=== PATIENT | male | born 1985 | race Caucasian/White ===

== ENCOUNTER 2020-04-15 05:40 | Inpatient (IN) | payer MEDICAID, OTHER ==
[~2020-04-15] VITALS: Ht 165.1 cm; Wt 89.2 kg
--- NOTE | 2020-04-15 05:50 | NUR ---
PT BIB [facility] FROM [facility] FOR AN ABSCESS IN THE MOUTH, HYPOTENSION AND COVID+ WITH LABORED RESPIRATIONS. PT HAS BEEN RECIEVING ANTIBIOTICS AT THE [facility] FOR ABSCESS IN MOUTH. 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 PT ATTACHED TO ALL MONITORS AND [address] LAW ENFORCEMENT AT BEDSIDE D/T PT IN CUSTODY.
[2020-04-15] MEDS ORDERED: CEFTRIAXONE PMX 1GM/50ML 50 ML IVPB ONE (06:00)
[2020-04-15] MEDS ORDERED: AZITHROMYCIN 500 MG in SODIUM CHLORIDE 0.9% 250 ML IVPB ONE (06:00)
[2020-04-15] MEDS ORDERED: ACETAMINOPHEN 500 MG TABLET PO ONE (06:00)
[2020-04-15] MEDS ORDERED: SODIUM CHLORIDE 0.9% 1,000ML IVBOLUS ONE (06:00)
[2020-04-15] MEDS ORDERED: DEXAMETHASONE 4 MG/ML, 1ML IV ONE (06:00)
[2020-04-15] MEDS ORDERED: CEFTRIAXONE PMX 1GM/50ML 50 ML ONE (06:07)
[2020-04-15] MEDS ORDERED: DEXAMETHASONE 4 MG/ML, 5ML ONE (06:13)
--- NOTE | 2020-04-15 06:17 | NUR ---
abx started after blood cultures x 2 drawn
[2020-04-15 06:19] LABS: MEAN CORPUSCULAR HEMOGLOBIN 30.4 pg (27.5-34.5); MEAN CORPUSCULAR HGB CONC 34.5 g/dL (33.2-36.2); MEAN PLATELET VOLUME 11.6 fL (7.4-10.4); PLATELET COUNT 116 x10^3/uL (130-400); RED BLOOD COUNT 4.68 x10^6/uL (4.38-5.82); RED CELL DISTRIBUTION WIDTH 13.3 % (9.4-14.8)
[2020-04-15 06:39] LABS: D-DIMER (DIC) 7.73 ug/mlFEU (0.00-0.52); PROTIME 13.6 Seconds (9.6-11.5)
[2020-04-15 06:40] LABS: ALANINE AMINOTRANSFERASE 51 U/L (12-78); ALBUMIN 2.5 g/dL (3.4-5.0); ANION GAP 14 mmol/L (5-15); CALCIUM 8.1 mg/dL (8.5-10.1); CHLORIDE 103 mmol/L (98-107)
[2020-04-15 06:45] LABS: ALKALINE PHOSPHATASE 169 U/L (45-117); BILIRUBIN,TOTAL 1.4 mg/dL (0.2-1.0); CREATININE 2.39 mg/dL (0.7-1.3); TOTAL PROTEIN 6.4 g/dL (6.4-8.2); TROPONIN I 0.513 ng/mL (0.000-0.045)
[2020-04-15 06:47] LABS: MD YES
[2020-04-15 06:50] LABS: C-REACTIVE PROTEIN, QUANT > 19.00 mg/dL (0.02-0.49)
[2020-04-15 06:51] LABS: BAND#(MANUAL) 1.04 x10^3/uL; BANDS%(MANUAL) 16 % (0-7); LYMPH#(MANUAL) 0.46 x10^3/uL (1-3.4); LYMPHS% (MANUAL) 7 % (22-44); METAMYELOCYTES# (MANUAL) 0.07 x10^3/uL (0-0); METAMYELOCYTES% (MANUAL) 1 % (0-1); MONOS#(MANUAL) 0.07 x10^3/uL (0.3-2.7); MONOS% (MANUAL) 1 % (2-9)
[2020-04-15 06:52] LABS: <PLATELET ESTIMATE> ADEQUATE; <PLT MORPHOLOGY> NORMAL PLT MORPH; <RBC MORPHOLOGY> NORMAL; SEG#(MANUAL) 4.88 x10^3/uL (1.8-6.8); SEGS% (MANUAL) 75 % (42-75)
--- NOTE | 2020-04-15 06:59 | NUR ---
Report from Valery GARCIA. Pt resting in bed, tachypnic- from report this is unchanged from arriving condition. Pt positioned for comfort in bed, denies pain or other needs at this time. POC discussed with pt and deputy who is at bedside. Continuous heart, oxygen and BP Monitors are in place, all safety measures observed. IVF and IV abx are infusing well.
[2020-04-15] MEDS ORDERED: HEPARIN 5,000 UNITS/ML, 1ML IV ONE (07:30)
[2020-04-15] MEDS ORDERED: SODIUM CHLORIDE FLUSH 10ML SYR IVF PRN (07:30)
--- NOTE | 2020-04-15 07:46 | NUR ---
Report from Gabriella GARCIA. Pending heparin drip from pharmacy. Azithromycin IV andreia. Pt on monitor. Officer at bedside.
[2020-04-15] MEDS ORDERED: HEPARIN 5,000 UNITS/ML, 1ML ONE (07:58)
[2020-04-15] MEDS ORDERED: HEPARIN 25,000 UNITS/250ML PMX 250 ML ONE (08:04)
[2020-04-15] MEDS: HEPARIN 25,000 UNITS/250ML PMX 250 ML IV PRN (08:28)
--- NOTE | 2020-04-15 08:31 | NUR ---
heparin started. antibiotics running. plan of care discussed.
--- NOTE | 2020-04-15 08:41 | NUR ---
Report to Yoel GARCIA. Pt to be transported upstairs via tech and RN.
[2020-04-15] MEDS ORDERED: DOCUSATE 100 MG CAPSULE PO PRN (09:00)
[2020-04-15] MEDS ORDERED: GLUCAGON 1 MG IM PRN (09:00)
[2020-04-15] MEDS ORDERED: PHARMACY MAY ADJ FOR RENAL FX MC SCH ×2 (09:00→15:30)
[2020-04-15] MEDS ORDERED: DEXTROSE 50%, 50ML SYRINGE IVPush PRN (09:00)
[2020-04-15] MEDS ORDERED: VANCOMYCIN PER PHARMACY MC SCH (09:00)
[2020-04-15] MEDS ORDERED: DEXTROSE 4 GM TAB.CHEW PO PRN (09:00)
[2020-04-15] MEDS ORDERED: ONDANSETRON 2MG/ML, 2ML IV PRN (09:00)
[2020-04-15] MEDS ORDERED: PIPERACILLIN/TAZO/PMX 4.5GM 100 ML IVPB SCH (09:00)
[2020-04-15] MEDS ORDERED: SODIUM CHLORIDE 0.9% 1,000 ML IV SCH (09:00)
--- NOTE | 2020-04-15 09:01 | NUR ---
pt away to ct then transported to floor
[2020-04-15] MEDS ORDERED: ALBUTEROL/IPRATROPIUM 2.5MG/0.5MG, 3 ML HHN SCH (09:30)
[2020-04-15 10:23] LABS: TROPONIN I 0.522 ng/mL (0.000-0.045)
[2020-04-15 10:27] LABS: D-DIMER 4.33 ug/mlFEU (0.00-0.52)
[2020-04-15 10:30] VITALS: BP_SYST 96; BP_DIAS 67; BP_DIAS 68
[2020-04-15 10:34] LABS: FIBRINOGEN > 860 mg/dL (200-340)
[2020-04-15] MEDS: INSULIN REGULAR 100 UNITS/ML, 3ML VIAL SQ-INSULIN SCH ×3 (11:00→20:03)
[2020-04-15] MEDS: SODIUM CHLORIDE 0.9% 1,000 ML IV SCH ×2 (11:00→18:28)
[2020-04-15] MEDS ORDERED: PHARMACOKINETIC MONITORING MC PRN (11:00)
[2020-04-15] MEDS ORDERED: VANCOMYCIN 2,300 MG in SODIUM CHLORIDE 0.9% 500 ML IV ONE (11:00)
[2020-04-15] MEDS ORDERED: FLUTICASONE/VILANTEROL 100-25MCG/INH INH SCH (11:00)
[2020-04-15] MEDS: SODIUM CHLORIDE FLUSH 10ML SYR IVF SCH ×2 (11:26→19:59)
[2020-04-15] MEDS: PIPERACILLIN/TAZO/PMX 3.375GM 50 ML IV SCH ×2 (11:26→19:58)
[2020-04-15 11:49] LABS: FIO2 ROOM AIR %
[2020-04-15] MEDS ORDERED: POTASSIUM CHLORIDE 40 MEQ in SODIUM CHLORIDE 0.9% 100 ML IV ONE (12:00)
[2020-04-15] MEDS ORDERED: POTASSIUM CHLORIDE 40 MEQ in SODIUM CHLORIDE 0.9% 500 ML IV ONE (12:30)
[2020-04-15] MEDS ORDERED: RACEPINEPHRINE INH 2.25%, 0.5ML NPPB PRN (12:30)
[2020-04-15] MEDS: LACTATED RINGERS 1,000 ML IV SCH ×2 (13:00→18:27)
[2020-04-15 14:37] VITALS: BP 106/69
[2020-04-15 14:46] LABS: TROPONIN I 0.318 ng/mL (0.000-0.045)
[2020-04-15] MEDS ORDERED: FENTANYL PF 100 MCG/2ML ONE ×7 (14:49→17:11)
[2020-04-15] MEDS ORDERED: EPINEPHRINE 1 MG/ML, 1ML ONE (15:20)
[2020-04-15] MEDS ORDERED: BACITRACIN 50,000 UNIT ONE (15:20)
[2020-04-15] MEDS ORDERED: LIDOCAINE 1%, 20ML ONE (15:20)
[2020-04-15] MEDS ORDERED: EPHEDRINE 50 MG/ML, 1ML IVPush PRN (15:30)
[2020-04-15] MEDS ORDERED: ACETAMINOPHEN 325 MG TABLET PO PRN (15:30)
[2020-04-15] MEDS ORDERED: OXYcodone 5 MG/5 ML ORAL.SOL UDC PO PRN (15:30)
[2020-04-15] MEDS ORDERED: HYDROmorphone 1 MG/ML, 1ML INJ IVPush PRN (15:30)
[2020-04-15] MEDS ORDERED: hydrALAzine 20 MG/ML, 1ML IV PRN (15:30)
[2020-04-15] MEDS ORDERED: ONDANSETRON 2MG/ML, 2ML IVPush PRN (15:30)
[2020-04-15] MEDS ORDERED: PROMETHAZINE 25 MG/ML, 1ML IVPush PRN (15:30)
[2020-04-15] MEDS ORDERED: LIDOCAINE-MPF 1%, 2ML ENDO PRN (15:30)
[2020-04-15] MEDS ORDERED: PROPOFOL 100 ML IV PRN (15:30)
[2020-04-15] MEDS ORDERED: LABETALOL 5MG/ML, 20ML IV PRN (15:30)
[2020-04-15] MEDS ORDERED: FENTANYL PF 100 MCG/2ML IV PRN (15:30)
[2020-04-15] MEDS ORDERED: OXYcodone 5 MG/5 ML ORAL.SOL UDC ONE (15:40)
[2020-04-15] MEDS ORDERED: LIDOCAINE-MPF 2% ,5ML ONE (15:45)
[2020-04-15] MEDS ORDERED: SUGAMMADEX 200 MG/2 ML IVPush ONE (16:01)
[2020-04-15] MEDS ORDERED: PROPOFOL 10 MG/ML, 20ML ONE (16:01)
[2020-04-15] MEDS ORDERED: SUCCINYLCHOLINE 20 MG/ML, 10ML ONE (16:01)
[2020-04-15] MEDS ORDERED: DEXAMETHASONE 4 MG/ML, 1ML ONE (16:01)
[2020-04-15] MEDS ORDERED: ROCURONIUM 10MG/ML,5ML ONE (16:01)
[2020-04-15] MEDS ORDERED: ONDANSETRON 2MG/ML, 2ML ONE (16:01)
[2020-04-15] MEDS ORDERED: MIDAZOLAM 1 MG/ML, 2ML ONE (16:11)
[2020-04-15] MEDS ORDERED: LIDOCAINE 1%-EPI 1:100K, 20ML INFIL ONE (16:22)
[2020-04-15 16:23] LABS: CHLORIDE,URINE RANDOM 102 mmol/L; POTASSIUM,URINE RANDOM 25 mmol/L; SODIUM,URINE RANDOM 73 mmol/L
[2020-04-15] MEDS ORDERED: BACITRACIN 50,000 UNIT IM ONE (16:23)
[2020-04-15 16:50] LABS: MICROSCOPIC INDICATED
[2020-04-15 16:57] LABS: ALBUMIN 2.3 g/dL (3.4-5.0); ANION GAP 13 mmol/L (5-15); CALCIUM 8.1 mg/dL (8.5-10.1); CHLORIDE 108 mmol/L (98-107); CREATININE 1.65 mg/dL (0.7-1.3)
[2020-04-15 16:59] LABS: CREATINE KINASE, TOTAL 538 U/L (39-308)
[2020-04-15] MEDS ORDERED: PROPOFOL 50 ML ONE (17:30)
[2020-04-15] MEDS: PROPOFOL 100 ML IV PRN ×2 (18:16→23:40)
[2020-04-15] MEDS: DEXAMETHASONE 4 MG/ML, 1ML IVPush SCH (18:17)
[2020-04-15 21:08] LABS: TROPONIN I 0.178 ng/mL (0.000-0.045)
[2020-04-16] MEDS: FENTANYL PF 100 MCG/2ML IVPush PRN ×3 (00:15→17:15)
[2020-04-16] MEDS: HEPARIN 25,000 UNITS/250ML PMX 250 ML IV PRN (00:33)
[2020-04-16] MEDS: SODIUM CHLORIDE 0.9% 1,000 ML IV SCH (02:03)
[2020-04-16] MEDS: LACTATED RINGERS 1,000 ML IV SCH ×3 (02:21→13:13)
[2020-04-16] MEDS: DEXAMETHASONE 4 MG/ML, 1ML IVPush SCH ×3 (02:21→20:27)
[2020-04-16] MEDS: PIPERACILLIN/TAZO/PMX 3.375GM 50 ML IV SCH ×4 (02:21→20:27)
[2020-04-16] MEDS: PROPOFOL 100 ML IV PRN ×5 (04:16→22:01)
[2020-04-16 06:45] LABS: MEAN CORPUSCULAR HEMOGLOBIN 30.1 pg (27.5-34.5); MEAN CORPUSCULAR HGB CONC 34.1 g/dL (33.2-36.2); MEAN PLATELET VOLUME 11.6 fL (7.4-10.4); PLATELET COUNT 109 x10^3/uL (130-400); RED BLOOD COUNT 4.22 x10^6/uL (4.38-5.82); RED CELL DISTRIBUTION WIDTH 13.8 % (9.4-14.8)
[2020-04-16 06:48] LABS: ALBUMIN 1.9 g/dL (3.4-5.0); ANION GAP 9 mmol/L (5-15); CALCIUM 7.6 mg/dL (8.5-10.1); CHLORIDE 111 mmol/L (98-107)
[2020-04-16 06:57] LABS: ALANINE AMINOTRANSFERASE 47 U/L (12-78); ALKALINE PHOSPHATASE 66 U/L (45-117); BILIRUBIN,TOTAL 1.1 mg/dL (0.2-1.0); CREATININE 1.09 mg/dL (0.7-1.3); HCT (SEDRATE) 37.2 % (39.2-51.8); TOTAL PROTEIN 5.8 g/dL (6.4-8.2); VANCOMYCIN,RANDOM 5.9 mcg/mL
[2020-04-16 07:01] LABS: C-REACTIVE PROTEIN, QUANT > 19.00 mg/dL (0.02-0.49)
[2020-04-16 07:15] LABS: MD YES
[2020-04-16 07:17] LABS: <PLATELET ESTIMATE> DECREASED; <RBC MORPHOLOGY> NORMAL; BAND#(MANUAL) 4.24 x10^3/uL; BANDS%(MANUAL) 27 % (0-7); LYMPH#(MANUAL) 2.04 x10^3/uL (1-3.4); LYMPHS% (MANUAL) 13 % (22-44); METAMYELOCYTES# (MANUAL) 0.31 x10^3/uL (0-0); METAMYELOCYTES% (MANUAL) 2 % (0-1); MONOS#(MANUAL) 1.26 x10^3/uL (0.3-2.7); MONOS% (MANUAL) 8 % (2-9); PMNS WITH VACUOLES 1+; SEG#(MANUAL) 7.85 x10^3/uL (1.8-6.8); SEGS% (MANUAL) 50 % (42-75); TOXIC GRAN 1+
[2020-04-16 07:18] LABS: LARGE PLATELETS 1+
[2020-04-16] MEDS ORDERED: VANCOMYCIN 1,800 MG in SODIUM CHLORIDE 0.9% 250 ML IV SCH (07:30)
[2020-04-16] MEDS: SODIUM CHLORIDE FLUSH 10ML SYR IVF SCH ×2 (08:36→20:27)
[2020-04-16] MEDS: INSULIN REGULAR 100 UNITS/ML, 3ML VIAL SQ-INSULIN SCH ×3 (08:37→20:38)
[2020-04-16] MEDS ORDERED: DEXAMETHASONE 4 MG/ML, 1ML IVPush SCH (09:00)
[2020-04-16] MEDS ORDERED: SODIUM CHLORIDE 0.9% 1,000 ML IV SCH (11:00)
[2020-04-16] MEDS: ENOXAPARIN 40 MG/0.4 ML SQ SCH (11:33)
[2020-04-16] MEDS: FAMOTIDINE 20 MG/2 ML IVPush SCH ×2 (11:33→20:27)
[2020-04-16] MEDS ORDERED: LIDOCAINE 1%, 20ML ONE (16:48)
[2020-04-16] MEDS ORDERED: EPINEPHRINE 1 MG/ML, 1ML ONE (16:48)
[2020-04-16] MEDS: ACETAMINOPHEN 325 MG TABLET PO PRN (20:28)
[2020-04-17] MEDS: PROPOFOL 100 ML IV PRN ×4 (01:34→17:38)
[2020-04-17] MEDS: PIPERACILLIN/TAZO/PMX 3.375GM 50 ML IV SCH ×4 (01:59→19:42)
[2020-04-17] MEDS: INSULIN REGULAR 100 UNITS/ML, 3ML VIAL SQ-INSULIN SCH ×2 (04:27→08:00)
[2020-04-17 05:15] LABS: CHLORIDE 113 mmol/L (98-107)
[2020-04-17 05:22] LABS: ALANINE AMINOTRANSFERASE 37 U/L (12-78); ALBUMIN 1.7 g/dL (3.4-5.0); ALKALINE PHOSPHATASE 61 U/L (45-117); ANION GAP 5 mmol/L (5-15); BILIRUBIN,TOTAL 0.7 mg/dL (0.2-1.0); CALCIUM 8.1 mg/dL (8.5-10.1); CREATININE 0.77 mg/dL (0.7-1.3); TOTAL PROTEIN 5.8 g/dL (6.4-8.2)
[2020-04-17 05:32] LABS: MEAN CORPUSCULAR HEMOGLOBIN 29.9 pg (27.5-34.5); MEAN PLATELET VOLUME 11.7 fL (7.4-10.4); PLATELET COUNT 125 x10^3/uL (130-400); RED BLOOD COUNT 3.94 x10^6/uL (4.38-5.82); RED CELL DISTRIBUTION WIDTH 13.6 % (9.4-14.8)
[2020-04-17 06:08] LABS: BANDS%(MANUAL) 29 % (0-7); LYMPH#(MANUAL) 0.16 x10^3/uL (1-3.4); LYMPHS% (MANUAL) 1 % (22-44); MD YES; MONOS#(MANUAL) 0.47 x10^3/uL (0.3-2.7); MONOS% (MANUAL) 3 % (2-9); SEG#(MANUAL) 10.39 x10^3/uL (1.8-6.8); SEGS% (MANUAL) 67 % (42-75)
[2020-04-17 06:10] LABS: <RBC MORPHOLOGY> NORMAL
[2020-04-17 06:11] LABS: <PLATELET ESTIMATE> ADEQUATE
[2020-04-17 06:12] LABS: LARGE PLATELETS 1+
[2020-04-17] MEDS: FAMOTIDINE 20 MG/2 ML IVPush SCH ×2 (07:59→19:42)
[2020-04-17] MEDS: SODIUM CHLORIDE FLUSH 10ML SYR IVF SCH ×2 (07:59→19:43)
[2020-04-17] MEDS: DEXAMETHASONE 4 MG/ML, 1ML IVPush SCH ×2 (07:59→19:42)
[2020-04-17] MEDS: LACTATED RINGERS 1,000 ML IV SCH (08:00)
[2020-04-17] MEDS: ENOXAPARIN 40 MG/0.4 ML SQ SCH (09:28)
[2020-04-17] MEDS ORDERED: REMDESIVIR 200 MG in SODIUM CHLORIDE 0.9% 250 ML IVPB ONE (15:30)
[2020-04-17] MEDS: FENTANYL PF 100 MCG/2ML IVPush PRN (15:49)
[2020-04-18] MEDS: PIPERACILLIN/TAZO/PMX 3.375GM 50 ML IV SCH (02:13)
[2020-04-18] MEDS: PROPOFOL 100 ML IV PRN (03:23)
[2020-04-18] MEDS: FENTANYL PF 100 MCG/2ML IVPush PRN ×2 (04:05→10:33)
[2020-04-18 04:41] LABS: HCT (SEDRATE) 36.9 % (39.2-51.8); MEAN CORPUSCULAR HEMOGLOBIN 29.8 pg (27.5-34.5); MEAN CORPUSCULAR HGB CONC 33.7 g/dL (33.2-36.2); MEAN PLATELET VOLUME 11.5 fL (7.4-10.4); PLATELET COUNT 178 x10^3/uL (130-400); RED BLOOD COUNT 4.18 x10^6/uL (4.38-5.82)
[2020-04-18 05:00] LABS: ALANINE AMINOTRANSFERASE 36 U/L (12-78); ALBUMIN 1.7 g/dL (3.4-5.0); ALKALINE PHOSPHATASE 82 U/L (45-117); BILIRUBIN,TOTAL 0.6 mg/dL (0.2-1.0); CALCIUM 8.1 mg/dL (8.5-10.1); CREATININE 0.78 mg/dL (0.7-1.3); TOTAL PROTEIN 5.9 g/dL (6.4-8.2); TRIGLYCERIDES 445 mg/dL (50-200)
[2020-04-18 05:06] LABS: ANION GAP 4 mmol/L (5-15); CHLORIDE 113 mmol/L (98-107)
[2020-04-18 06:01] LABS: MD YES
[2020-04-18 06:03] LABS: BAND#(MANUAL) 1.29 x10^3/uL; BANDS%(MANUAL) 7 % (0-7); LYMPH#(MANUAL) 0.92 x10^3/uL (1-3.4); LYMPHS% (MANUAL) 5 % (22-44); MONOS#(MANUAL) 1.29 x10^3/uL (0.3-2.7); MONOS% (MANUAL) 7 % (2-9); SEGS% (MANUAL) 81 % (42-75)
[2020-04-18 06:05] LABS: <PLATELET ESTIMATE> ADEQUATE; LARGE PLATELETS 1+; PMNS WITH VACUOLES 1+; POLYCHROMASIA 1+; TOXIC GRAN 1+
[2020-04-18] MEDS ORDERED: MIDAZOLAM HCL 50 MG in SODIUM CHLORIDE 0.9% 40 ML IV PRN (07:00)
[2020-04-18] MEDS: FAMOTIDINE 20 MG/2 ML IVPush SCH ×2 (09:28→20:10)
[2020-04-18] MEDS: DEXAMETHASONE 4 MG/ML, 1ML IVPush SCH ×2 (09:28→20:10)
[2020-04-18] MEDS: AMPICILLIN/SULBACTAM 3 GM in SODIUM CHLORIDE 0.9% 100 ML IV SCH ×3 (09:28→18:09)
[2020-04-18] MEDS: SODIUM CHLORIDE FLUSH 10ML SYR IVF SCH ×2 (09:29→20:11)
[2020-04-18] MEDS: DEXMEDETOMIDINE 400 MCG in SODIUM CHLORIDE 0.9% 96 ML IV PRN ×2 (09:34→18:24)
[2020-04-18] MEDS ORDERED: LIDOCAINE 1%, 10ML ONE (09:58)
[2020-04-18] MEDS: ENOXAPARIN 40 MG/0.4 ML SQ SCH (10:00)
[2020-04-18] MEDS ORDERED: REMDESIVIR 100 MG in SODIUM CHLORIDE 0.9% 250 ML IVPB SCH (15:30)
[2020-04-19] MEDS: AMPICILLIN/SULBACTAM 3 GM in SODIUM CHLORIDE 0.9% 100 ML IV SCH ×2 (00:10→05:32)
[2020-04-19] MEDS: DEXMEDETOMIDINE 400 MCG in SODIUM CHLORIDE 0.9% 96 ML IV PRN ×3 (02:25→18:21)
[2020-04-19 04:20] LABS: HCT (SEDRATE) 38.4 % (39.2-51.8)
[2020-04-19 04:22] LABS: BASOPHILS % (AUTO) 0 % (0-1); EOSINOPHILS % (AUTO) 0 % (1-7); LYMPHOCYTES % (AUTO) 4 % (22-44); MEAN CORPUSCULAR HEMOGLOBIN 29.6 pg (27.5-34.5); MEAN CORPUSCULAR HGB CONC 33.2 g/dL (33.2-36.2); MEAN PLATELET VOLUME 11.7 fL (7.4-10.4); MONOCYTES % (AUTO) 5 % (2-9); NEUTROPHILS % (AUTO) 91 % (42-75); PLATELET COUNT 222 x10^3/uL (130-400); RED BLOOD COUNT 4.35 x10^6/uL (4.38-5.82); RED CELL DISTRIBUTION WIDTH 14.3 % (9.4-14.8)
[2020-04-19 04:37] LABS: ALANINE AMINOTRANSFERASE 40 U/L (12-78); ALBUMIN 1.6 g/dL (3.4-5.0); CHLORIDE 118 mmol/L (98-107); CREATININE 0.78 mg/dL (0.7-1.3)
[2020-04-19 04:39] LABS: ALKALINE PHOSPHATASE 86 U/L (45-117); BILIRUBIN,TOTAL 0.5 mg/dL (0.2-1.0)
[2020-04-19] MEDS: HYDROcodone/APAP 5/325 TABLET PO PRN (04:46)
[2020-04-19 04:52] LABS: ANION GAP 1 mmol/L (5-15)
[2020-04-19] MEDS: FENTANYL PF 100 MCG/2ML IVPush PRN ×2 (04:56→05:10)
[2020-04-19 04:57] LABS: MD SCAN
[2020-04-19] MEDS: INSULIN LISPRO 100 UNITS/ML, PEN SQ-INSULIN SCH ×4 (09:12→20:28)
[2020-04-19] MEDS: INSULIN GLARGINE 100 UNITS/ML, PEN SQ-INSULIN SCH ×2 (09:13→20:28)
[2020-04-19] MEDS: FAMOTIDINE 20 MG/2 ML IVPush SCH ×2 (09:14→20:27)
[2020-04-19] MEDS: ENOXAPARIN 40 MG/0.4 ML SQ SCH (09:14)
[2020-04-19] MEDS: DEXAMETHASONE 4 MG/ML, 1ML IVPush SCH ×2 (09:14→20:26)
[2020-04-19] MEDS: SODIUM CHLORIDE FLUSH 10ML SYR IVF SCH ×2 (09:15→20:26)
[2020-04-19] MEDS: CEFTRIAXONE PMX 2GM/50ML 50 ML IVPB SCH (10:54)
[2020-04-19 11:49] LABS: CLOSTRIDIUM DIFFICILE ANTIGEN NEGATIVE; CLOSTRIDIUM DIFFICILE TOXIN NEGATIVE (Negative)
[2020-04-19] MEDS: CLINDAMYCIN PMX 900MG/50ML 50 ML IV SCH ×2 (12:53→20:26)
[2020-04-20] MEDS: HYDROcodone/APAP 5/325 TABLET PO PRN (02:22)
[2020-04-20] MEDS: DEXMEDETOMIDINE 400 MCG in SODIUM CHLORIDE 0.9% 96 ML IV PRN ×4 (02:57→21:45)
[2020-04-20] MEDS: INSULIN LISPRO 100 UNITS/ML, PEN SQ-INSULIN SCH ×4 (04:00→20:40)
[2020-04-20 04:35] LABS: BASOPHILS % (AUTO) 0 % (0-1); EOSINOPHILS % (AUTO) 0 % (1-7); LYMPHOCYTES % (AUTO) 7 % (22-44); MEAN CORPUSCULAR HEMOGLOBIN 29.8 pg (27.5-34.5); MEAN CORPUSCULAR HGB CONC 33.2 g/dL (33.2-36.2); MEAN PLATELET VOLUME 11.5 fL (7.4-10.4); MONOCYTES % (AUTO) 6 % (2-9); NEUTROPHILS % (AUTO) 86 % (42-75); PLATELET COUNT 260 x10^3/uL (130-400); RED CELL DISTRIBUTION WIDTH 14.3 % (9.4-14.8)
[2020-04-20 04:56] LABS: ALBUMIN 1.6 g/dL (3.4-5.0); ANION GAP 2 mmol/L (5-15); CALCIUM 8.2 mg/dL (8.5-10.1); CHLORIDE 122 mmol/L (98-107)
[2020-04-20 05:01] LABS: ALANINE AMINOTRANSFERASE 64 U/L (12-78); ALKALINE PHOSPHATASE 84 U/L (45-117); BILIRUBIN,TOTAL 0.6 mg/dL (0.2-1.0); CREATININE 0.59 mg/dL (0.7-1.3); TOTAL PROTEIN 5.7 g/dL (6.4-8.2)
[2020-04-20] MEDS ORDERED: OMNIPAQUE 350 MG/ML, 75ML BOTTLE ONE (05:38)
[2020-04-20] MEDS: CLINDAMYCIN PMX 900MG/50ML 50 ML IV SCH ×3 (05:44→20:38)
[2020-04-20 05:46] LABS: MD SCAN
[2020-04-20] MEDS: DEXAMETHASONE 4 MG/ML, 1ML IVPush SCH ×2 (08:38→20:39)
[2020-04-20] MEDS: FAMOTIDINE 20 MG/2 ML IVPush SCH ×2 (08:38→20:38)
[2020-04-20] MEDS: ENOXAPARIN 40 MG/0.4 ML SQ SCH (08:39)
[2020-04-20] MEDS: INSULIN GLARGINE 100 UNITS/ML, PEN SQ-INSULIN SCH ×2 (08:41→20:39)
[2020-04-20] MEDS: SODIUM CHLORIDE FLUSH 10ML SYR IVF SCH ×2 (08:41→20:39)
[2020-04-20] MEDS ORDERED: PSYLLIUM PACKET PO SCH (09:06)
[2020-04-20] MEDS: FENTANYL PF 100 MCG/2ML IVPush PRN ×3 (09:19→21:45)
[2020-04-20] MEDS: CEFTRIAXONE PMX 2GM/50ML 50 ML IVPB SCH (09:40)
[2020-04-20] MEDS ORDERED: LOPERAMIDE 1 MG/5 ML, 10ML UDC NG SCH (12:30)
[2020-04-20] MEDS: LOPERAMIDE 1 MG/7.5 ML LIQUID NG SCH ×2 (14:24→20:38)
[2020-04-21] MEDS: FENTANYL PF 100 MCG/2ML IVPush PRN ×7 (00:08→23:33)
[2020-04-21] MEDS: LOPERAMIDE 1 MG/7.5 ML LIQUID NG SCH (03:00)
[2020-04-21] MEDS: INSULIN LISPRO 100 UNITS/ML, PEN SQ-INSULIN SCH ×4 (03:00→20:04)
[2020-04-21] MEDS: DEXMEDETOMIDINE 400 MCG in SODIUM CHLORIDE 0.9% 96 ML IV PRN ×3 (03:51→20:16)
[2020-04-21] MEDS: CLINDAMYCIN PMX 900MG/50ML 50 ML IV SCH ×3 (03:51→19:59)
[2020-04-21 04:58] LABS: BASOPHILS % (AUTO) 0 % (0-1); EOSINOPHILS % (AUTO) 0 % (1-7); LYMPHOCYTES % (AUTO) 8 % (22-44); MEAN CORPUSCULAR HEMOGLOBIN 29.5 pg (27.5-34.5); MEAN PLATELET VOLUME 11.7 fL (7.4-10.4); MONOCYTES % (AUTO) 7 % (2-9); NEUTROPHILS % (AUTO) 85 % (42-75); PLATELET COUNT 268 x10^3/uL (130-400); RED BLOOD COUNT 4.16 x10^6/uL (4.38-5.82); RED CELL DISTRIBUTION WIDTH 14.3 % (9.4-14.8)
[2020-04-21 04:59] LABS: ALANINE AMINOTRANSFERASE 53 U/L (12-78); ALBUMIN 1.6 g/dL (3.4-5.0); ANION GAP 3 mmol/L (5-15); CALCIUM 7.9 mg/dL (8.5-10.1); CHLORIDE 114 mmol/L (98-107); CREATININE 0.55 mg/dL (0.7-1.3); TRIGLYCERIDES 209 mg/dL (50-200)
[2020-04-21 05:01] LABS: ALKALINE PHOSPHATASE 79 U/L (45-117); BILIRUBIN,TOTAL 0.6 mg/dL (0.2-1.0); TOTAL PROTEIN 5.5 g/dL (6.4-8.2)
[2020-04-21 05:51] LABS: MD SCAN
[2020-04-21] MEDS: DEXAMETHASONE 4 MG/ML, 1ML IVPush SCH (08:13)
[2020-04-21] MEDS: FAMOTIDINE 20 MG/2 ML IVPush SCH ×2 (08:15→19:59)
[2020-04-21] MEDS: ENOXAPARIN 40 MG/0.4 ML SQ SCH (08:15)
[2020-04-21] MEDS: SODIUM CHLORIDE FLUSH 10ML SYR IVF SCH ×2 (08:17→20:00)
[2020-04-21] MEDS ORDERED: PSYLLIUM PACKET PO PRN (09:00)
[2020-04-21] MEDS ORDERED: LOPERAMIDE 1 MG/7.5 ML LIQUID NG PRN (09:30)
[2020-04-21] MEDS: CEFTRIAXONE PMX 2GM/50ML 50 ML IVPB SCH (10:24)
[2020-04-21] MEDS: PSYLLIUM PACKET PO SCH (10:30)
[2020-04-21] MEDS: ACETAMINOPHEN 325 MG TABLET PO PRN ×2 (13:24→18:34)
[2020-04-22] MEDS: DEXMEDETOMIDINE 1,000 MCG in SODIUM CHLORIDE 0.9% 240 ML IV PRN ×2 (00:44→10:47)
[2020-04-22] MEDS: ACETAMINOPHEN 325 MG TABLET PO PRN (00:50)
[2020-04-22] MEDS: FENTANYL PF 100 MCG/2ML IVPush PRN ×6 (04:15→21:40)
[2020-04-22] MEDS: INSULIN LISPRO 100 UNITS/ML, PEN SQ-INSULIN SCH ×4 (04:16→19:33)
[2020-04-22] MEDS: CLINDAMYCIN PMX 900MG/50ML 50 ML IV SCH ×3 (04:16→19:37)
[2020-04-22 04:31] LABS: FIO2 32 %
[2020-04-22 04:31] LABS: MEAN CORPUSCULAR HEMOGLOBIN 29.7 pg (27.5-34.5); MEAN CORPUSCULAR HGB CONC 33.2 g/dL (33.2-36.2); MEAN PLATELET VOLUME 11.1 fL (7.4-10.4); PLATELET COUNT 262 x10^3/uL (130-400); RED BLOOD COUNT 4.43 x10^6/uL (4.38-5.82); RED CELL DISTRIBUTION WIDTH 14.3 % (9.4-14.8)
[2020-04-22 04:47] LABS: ALANINE AMINOTRANSFERASE 97 U/L (12-78); ALBUMIN 1.4 g/dL (3.4-5.0); ANION GAP 3 mmol/L (5-15); CALCIUM 7.8 mg/dL (8.5-10.1); CHLORIDE 112 mmol/L (98-107); CREATININE 0.64 mg/dL (0.7-1.3)
[2020-04-22 04:49] LABS: ALKALINE PHOSPHATASE 94 U/L (45-117); TOTAL PROTEIN 5.7 g/dL (6.4-8.2)
[2020-04-22 05:40] LABS: MD YES
[2020-04-22 05:42] LABS: BAND#(MANUAL) 0.27 x10^3/uL; BANDS%(MANUAL) 1 % (0-7); LYMPH#(MANUAL) 0.53 x10^3/uL (1-3.4); LYMPHS% (MANUAL) 2 % (22-44); MONOS#(MANUAL) 0.53 x10^3/uL (0.3-2.7); MONOS% (MANUAL) 2 % (2-9); SEG#(MANUAL) 25.18 x10^3/uL (1.8-6.8); SEGS% (MANUAL) 95 % (42-75)
[2020-04-22 05:43] LABS: <PLATELET ESTIMATE> ADEQUATE; <RBC MORPHOLOGY> NORMAL; LARGE PLATELETS 1+; PMNS WITH VACUOLES 1+; TOXIC GRAN 1+
[2020-04-22] MEDS: FAMOTIDINE 20 MG/2 ML IVPush SCH ×2 (08:10→19:32)
[2020-04-22] MEDS: SODIUM CHLORIDE FLUSH 10ML SYR IVF SCH ×2 (08:10→19:33)
[2020-04-22] MEDS: PSYLLIUM PACKET PO SCH (08:10)
[2020-04-22] MEDS: INSULIN GLARGINE 100 UNITS/ML, PEN SQ-INSULIN SCH (08:17)
[2020-04-22] MEDS: ENOXAPARIN 40 MG/0.4 ML SQ SCH (08:18)
[2020-04-22] MEDS: CEFTRIAXONE PMX 2GM/50ML 50 ML IVPB SCH (08:42)
[2020-04-22] MEDS ORDERED: LIDOCAINE 1%, 10ML ONE (14:05)
[2020-04-22] MEDS: HYDROcodone/APAP 5/325 TABLET PO PRN (19:33)
[2020-04-22] MEDS: ALBUTEROL/IPRATROPIUM 2.5MG/0.5MG, 3 ML NPPB SCH (20:50)
[2020-04-22] MEDS ORDERED: OMNIPAQUE 350 MG/ML, 100ML BOTTLE ONE (22:19)
[2020-04-23] MEDS: HYDROcodone/APAP 5/325 TABLET PO PRN ×2 (00:33→05:27)
[2020-04-23] MEDS: ALBUTEROL/IPRATROPIUM 2.5MG/0.5MG, 3 ML NPPB SCH ×4 (02:12→19:03)
[2020-04-23] MEDS: FENTANYL PF 100 MCG/2ML IVPush PRN ×3 (03:20→11:10)
[2020-04-23] MEDS: INSULIN LISPRO 100 UNITS/ML, PEN SQ-INSULIN SCH ×4 (03:24→20:01)
[2020-04-23 03:55] LABS: ALBUMIN 1.4 g/dL (3.4-5.0); ANION GAP 4 mmol/L (5-15); CALCIUM 7.8 mg/dL (8.5-10.1); CHLORIDE 112 mmol/L (98-107)
[2020-04-23 03:57] LABS: MEAN CORPUSCULAR HEMOGLOBIN 29.8 pg (27.5-34.5); MEAN PLATELET VOLUME 11.9 fL (7.4-10.4); PLATELET COUNT 249 x10^3/uL (130-400); RED CELL DISTRIBUTION WIDTH 14.1 % (9.4-14.8)
[2020-04-23 03:59] LABS: ALANINE AMINOTRANSFERASE 61 U/L (12-78); ALKALINE PHOSPHATASE 86 U/L (45-117); BILIRUBIN,TOTAL 0.6 mg/dL (0.2-1.0); CREATININE 0.68 mg/dL (0.7-1.3); TOTAL PROTEIN 5.6 g/dL (6.4-8.2)
[2020-04-23] MEDS: DEXMEDETOMIDINE 1,000 MCG in SODIUM CHLORIDE 0.9% 240 ML IV PRN (04:07)
[2020-04-23] MEDS: CLINDAMYCIN PMX 900MG/50ML 50 ML IV SCH ×3 (04:07→20:00)
[2020-04-23 04:40] LABS: MD YES
[2020-04-23 04:43] LABS: BAND#(MANUAL) 0.71 x10^3/uL; BANDS%(MANUAL) 3 % (0-7); LYMPH#(MANUAL) 1.89 x10^3/uL (1-3.4); LYMPHS% (MANUAL) 8 % (22-44); MONOS#(MANUAL) 0.94 x10^3/uL (0.3-2.7); MONOS% (MANUAL) 4 % (2-9); SEG#(MANUAL) 20.06 x10^3/uL (1.8-6.8); SEGS% (MANUAL) 85 % (42-75)
[2020-04-23 04:44] LABS: ANISOCYTOSIS 1+; TOXIC GRAN 1+
[2020-04-23 04:45] LABS: <PLATELET ESTIMATE> ADEQUATE; GIANT PLATELETS 1+; LARGE PLATELETS 1+
[2020-04-23] MEDS: FAMOTIDINE 20 MG/2 ML IVPush SCH ×2 (08:10→20:00)
[2020-04-23] MEDS: SODIUM CHLORIDE FLUSH 10ML SYR IVF SCH ×2 (08:10→20:01)
[2020-04-23] MEDS: PSYLLIUM PACKET PO SCH (08:10)
[2020-04-23] MEDS: INSULIN GLARGINE 100 UNITS/ML, PEN SQ-INSULIN SCH (09:00)
[2020-04-23] MEDS ORDERED: METHYLNALTREXONE 12 MG/0.6 ML SYR SQ PRN (09:00)
[2020-04-23] MEDS ORDERED: NOREPINEPHRINE 8 MG in SODIUM CHLORIDE 0.9% 242 ML IV PRN (09:30)
[2020-04-23] MEDS: FENTANYL PF 1,000 MCG in SODIUM CHLORIDE 0.9% 80 ML IV PRN ×2 (09:41→18:37)
[2020-04-23] MEDS: CEFTRIAXONE PMX 2GM/50ML 50 ML IVPB SCH (09:41)
[2020-04-23] MEDS: ENOXAPARIN 40 MG/0.4 ML SQ SCH (12:15)
[2020-04-23] MEDS: ACETAMINOPHEN 325 MG TABLET PO PRN (20:01)
[2020-04-24] MEDS: ALBUTEROL/IPRATROPIUM 2.5MG/0.5MG, 3 ML NPPB SCH ×4 (01:05→19:05)
[2020-04-24] MEDS: FENTANYL PF 1,000 MCG in SODIUM CHLORIDE 0.9% 80 ML IV PRN ×2 (02:03→09:06)
[2020-04-24] MEDS: ACETAMINOPHEN 325 MG TABLET PO PRN ×2 (02:03→20:02)
[2020-04-24] MEDS: INSULIN LISPRO 100 UNITS/ML, PEN SQ-INSULIN SCH ×4 (03:00→20:24)
[2020-04-24] MEDS: CLINDAMYCIN PMX 900MG/50ML 50 ML IV SCH ×2 (04:02→12:43)
[2020-04-24 04:04] LABS: MEAN CORPUSCULAR HEMOGLOBIN 29.5 pg (27.5-34.5); MEAN CORPUSCULAR HGB CONC 32.6 g/dL (33.2-36.2); MEAN PLATELET VOLUME 11.9 fL (7.4-10.4); PLATELET COUNT 292 x10^3/uL (130-400); RED CELL DISTRIBUTION WIDTH 14.4 % (9.4-14.8)
[2020-04-24 04:07] LABS: MD YES
[2020-04-24 04:13] LABS: ALANINE AMINOTRANSFERASE 132 U/L (12-78); ALBUMIN 1.5 g/dL (3.4-5.0); ANION GAP 3 mmol/L (5-15); CALCIUM 8.1 mg/dL (8.5-10.1); CHLORIDE 109 mmol/L (98-107); CREATININE 0.53 mg/dL (0.7-1.3); TRIGLYCERIDES 133 mg/dL (50-200)
[2020-04-24 04:16] LABS: ALKALINE PHOSPHATASE 144 U/L (45-117); BILIRUBIN,TOTAL 0.9 mg/dL (0.2-1.0); TOTAL PROTEIN 6.5 g/dL (6.4-8.2)
[2020-04-24 05:54] LABS: BAND#(MANUAL) 2.08 x10^3/uL; BANDS%(MANUAL) 8 % (0-7); LYMPH#(MANUAL) 0.78 x10^3/uL (1-3.4); LYMPHS% (MANUAL) 3 % (22-44); MONOS#(MANUAL) 1.56 x10^3/uL (0.3-2.7); MONOS% (MANUAL) 6 % (2-9); SEG#(MANUAL) 21.58 x10^3/uL (1.8-6.8); SEGS% (MANUAL) 83 % (42-75); TOXIC GRAN 1+
[2020-04-24 05:55] LABS: <PLATELET ESTIMATE> ADEQUATE; <RBC MORPHOLOGY> NORMAL; GIANT PLATELETS 1+; LARGE PLATELETS 1+
[2020-04-24] MEDS: PSYLLIUM PACKET PO SCH (09:00)
[2020-04-24] MEDS: FAMOTIDINE 20 MG/2 ML IVPush SCH ×2 (09:04→20:02)
[2020-04-24] MEDS: PROPOFOL 100 ML IV PRN ×3 (09:05→17:31)
[2020-04-24] MEDS: SODIUM CHLORIDE FLUSH 10ML SYR IVF SCH ×2 (09:06→20:02)
[2020-04-24] MEDS: ENOXAPARIN 40 MG/0.4 ML SQ SCH (10:00)
[2020-04-24] MEDS: CEFTRIAXONE PMX 2GM/50ML 50 ML IVPB SCH (10:09)
[2020-04-24] MEDS ORDERED: VECURONIUM 10 MG ONE (10:57)
[2020-04-24] MEDS ORDERED: MIDAZOLAM 1 MG/ML, 5ML ONE (11:01)
[2020-04-24] MEDS ORDERED: MIDAZOLAM 1 MG/ML, 2ML IVPush ONE (11:05)
[2020-04-24] MEDS ORDERED: VECURONIUM 10 MG IVPush ONE (11:30)
[2020-04-24] MEDS ORDERED: LACTATED RINGERS 1,000 ML IVBOLUS ONE (12:30)
[2020-04-24] MEDS ORDERED: BUPIVACAINE/PF 0.25% ONE (13:24)
[2020-04-24] MEDS ORDERED: EPINEPHRINE 1 MG/ML, 1ML ONE (13:25)
[2020-04-24] MEDS ORDERED: MIDAZOLAM 1 MG/ML, 2ML ONE (13:44)
[2020-04-24] MEDS ORDERED: EPHEDRINE 50 MG/ML, 1ML ONE (14:02)
[2020-04-24] MEDS ORDERED: ROCURONIUM 10 MG/ML,10ML ONE (14:02)
[2020-04-24] MEDS ORDERED: PHENYLEPHRINE 10 MG/ML ONE (14:02)
[2020-04-24] MEDS ORDERED: PROPOFOL 10 MG/ML, 20ML ONE (14:02)
[2020-04-24] MEDS: FENTANYL PF 2,500 MCG in SODIUM CHLORIDE 0.9% 200 ML IV PRN (16:48)
[2020-04-24] MEDS: ERTAPENEM 1 GM in SODIUM CHLORIDE 0.9% 50 ML IV SCH (16:54)
[2020-04-25] MEDS: PROPOFOL 100 ML IV PRN ×5 (00:15→23:14)
[2020-04-25] MEDS: ALBUTEROL/IPRATROPIUM 2.5MG/0.5MG, 3 ML NPPB SCH ×4 (01:30→19:05)
[2020-04-25] MEDS: INSULIN LISPRO 100 UNITS/ML, PEN SQ-INSULIN SCH ×4 (03:00→20:39)
[2020-04-25 04:19] LABS: MEAN CORPUSCULAR HEMOGLOBIN 30.8 pg (27.5-34.5); MEAN CORPUSCULAR HGB CONC 33.7 g/dL (33.2-36.2); MEAN PLATELET VOLUME 12.3 fL (7.4-10.4); PLATELET COUNT 279 x10^3/uL (130-400); RED BLOOD COUNT 3.79 x10^6/uL (4.38-5.82); RED CELL DISTRIBUTION WIDTH 14.5 % (9.4-14.8)
[2020-04-25 04:53] LABS: MD YES
[2020-04-25 04:59] LABS: <PLATELET ESTIMATE> ADEQUATE; ANISOCYTOSIS 1+; BAND#(MANUAL) 7.43 x10^3/uL; BANDS%(MANUAL) 27 % (0-7); GIANT PLATELETS 1+; LARGE PLATELETS 1+; LYMPH#(MANUAL) 0.83 x10^3/uL (1-3.4); LYMPHS% (MANUAL) 3 % (22-44); METAMYELOCYTES# (MANUAL) 1.93 x10^3/uL (0-0); METAMYELOCYTES% (MANUAL) 7 % (0-1); MONOS#(MANUAL) 0.83 x10^3/uL (0.3-2.7); MONOS% (MANUAL) 3 % (2-9); MYELOCYTES# (MANUAL) 0.28 x10^3/uL (0-0); MYELOCYTES% (MANUAL) 1 % (0-0); SEG#(MANUAL) 16.23 x10^3/uL (1.8-6.8); SEGS% (MANUAL) 59 % (42-75); TOXIC GRAN 1+
[2020-04-25 05:00] LABS: ECHINOCYTES 1+; PMNS WITH VACUOLES 1+
[2020-04-25 05:04] LABS: ALBUMIN 1.3 g/dL (3.4-5.0); ANION GAP 4 mmol/L (5-15); CALCIUM 7.9 mg/dL (8.5-10.1); CHLORIDE 109 mmol/L (98-107)
[2020-04-25 05:09] LABS: ALANINE AMINOTRANSFERASE 82 U/L (12-78); ALKALINE PHOSPHATASE 120 U/L (45-117); BILIRUBIN,TOTAL 1.3 mg/dL (0.2-1.0)
[2020-04-25] MEDS: SODIUM CHLORIDE FLUSH 10ML SYR IVF SCH ×2 (08:25→20:38)
[2020-04-25] MEDS: FAMOTIDINE 20 MG/2 ML IVPush SCH ×2 (08:26→20:39)
[2020-04-25] MEDS: PSYLLIUM PACKET PO SCH (08:26)
[2020-04-25] MEDS: HYDROcodone/APAP 5/325 TABLET PO PRN ×2 (08:26→23:25)
[2020-04-25] MEDS: FENTANYL PF 2,500 MCG in SODIUM CHLORIDE 0.9% 200 ML IV PRN (09:41)
[2020-04-25] MEDS: ENOXAPARIN 40 MG/0.4 ML SQ SCH (09:41)
[2020-04-25] MEDS: ACETAMINOPHEN 325 MG TABLET PO PRN ×2 (09:42→20:39)
[2020-04-25] MEDS ORDERED: LIDOCAINE 1%, 10ML ONE (14:11)
[2020-04-25] MEDS: ERTAPENEM 1 GM in SODIUM CHLORIDE 0.9% 50 ML IV SCH (15:41)
[2020-04-26] MEDS: ALBUTEROL/IPRATROPIUM 2.5MG/0.5MG, 3 ML NPPB SCH ×4 (01:00→19:21)
[2020-04-26] MEDS: INSULIN LISPRO 100 UNITS/ML, PEN SQ-INSULIN SCH ×2 (03:31→07:19)
[2020-04-26] MEDS: PROPOFOL 100 ML IV PRN ×4 (03:31→19:58)
[2020-04-26 03:46] LABS: BASOPHILS % (AUTO) 0 % (0-1); EOSINOPHILS % (AUTO) 0 % (1-7); LYMPHOCYTES % (AUTO) 4 % (22-44); MEAN CORPUSCULAR HEMOGLOBIN 29.4 pg (27.5-34.5); MEAN CORPUSCULAR HGB CONC 32.4 g/dL (33.2-36.2); MEAN PLATELET VOLUME 11.9 fL (7.4-10.4); MONOCYTES % (AUTO) 7 % (2-9); NEUTROPHILS % (AUTO) 89 % (42-75); PLATELET COUNT 255 x10^3/uL (130-400); RED BLOOD COUNT 3.26 x10^6/uL (4.38-5.82); RED CELL DISTRIBUTION WIDTH 14.8 % (9.4-14.8)
[2020-04-26 03:49] LABS: MD NO
[2020-04-26 04:00] LABS: ALBUMIN 1.1 g/dL (3.4-5.0); ANION GAP 2 mmol/L (5-15); CALCIUM 7.9 mg/dL (8.5-10.1); CHLORIDE 110 mmol/L (98-107)
[2020-04-26 04:06] LABS: ALANINE AMINOTRANSFERASE 64 U/L (12-78); ALKALINE PHOSPHATASE 119 U/L (45-117); BILIRUBIN,TOTAL 0.6 mg/dL (0.2-1.0); CREATININE 0.67 mg/dL (0.7-1.3); TOTAL PROTEIN 5.6 g/dL (6.4-8.2)
[2020-04-26] MEDS: FAMOTIDINE 20 MG/2 ML IVPush SCH ×2 (07:17→21:17)
[2020-04-26] MEDS: SODIUM CHLORIDE FLUSH 10ML SYR IVF SCH ×2 (07:18→21:00)
[2020-04-26] MEDS: PSYLLIUM PACKET PO SCH (07:18)
[2020-04-26] MEDS: HYDROcodone/APAP 5/325 TABLET PO PRN (07:21)
[2020-04-26] MEDS: FENTANYL PF 2,500 MCG in SODIUM CHLORIDE 0.9% 200 ML IV PRN (10:06)
[2020-04-26] MEDS: ENOXAPARIN 40 MG/0.4 ML SQ SCH (10:07)
[2020-04-26] MEDS: FLORASTOR 250 MG CAPSULE PO SCH ×2 (10:28→21:17)
[2020-04-26] MEDS: ERTAPENEM 1 GM in SODIUM CHLORIDE 0.9% 50 ML IV SCH (15:58)
[2020-04-26] MEDS: ACETAMINOPHEN 325 MG TABLET PO PRN (21:16)
[2020-04-27] MEDS: PROPOFOL 100 ML IV PRN ×4 (00:07→22:08)
[2020-04-27] MEDS: ALBUTEROL/IPRATROPIUM 2.5MG/0.5MG, 3 ML NPPB SCH ×4 (00:52→19:31)
[2020-04-27 03:52] LABS: BASOPHILS % (AUTO) 1 % (0-1); EOSINOPHILS % (AUTO) 0 % (1-7); LYMPHOCYTES % (AUTO) 9 % (22-44); MEAN CORPUSCULAR HEMOGLOBIN 29.4 pg (27.5-34.5); MEAN CORPUSCULAR HGB CONC 32.2 g/dL (33.2-36.2); MEAN PLATELET VOLUME 12.1 fL (7.4-10.4); MONOCYTES % (AUTO) 9 % (2-9); NEUTROPHILS % (AUTO) 82 % (42-75); PLATELET COUNT 283 x10^3/uL (130-400); RED BLOOD COUNT 3.22 x10^6/uL (4.38-5.82); RED CELL DISTRIBUTION WIDTH 14.9 % (9.4-14.8)
[2020-04-27 03:53] LABS: MD NO
[2020-04-27 04:03] LABS: ALBUMIN 1.1 g/dL (3.4-5.0); ANION GAP 2 mmol/L (5-15); CALCIUM 7.8 mg/dL (8.5-10.1); CHLORIDE 110 mmol/L (98-107)
[2020-04-27 04:06] LABS: ALANINE AMINOTRANSFERASE 54 U/L (12-78); ALKALINE PHOSPHATASE 130 U/L (45-117); BILIRUBIN,TOTAL 0.5 mg/dL (0.2-1.0); CREATININE 0.55 mg/dL (0.7-1.3); TOTAL PROTEIN 5.9 g/dL (6.4-8.2); TRIGLYCERIDES 191 mg/dL (50-200)
[2020-04-27] MEDS: FENTANYL PF 2,500 MCG in SODIUM CHLORIDE 0.9% 200 ML IV PRN (08:05)
[2020-04-27] MEDS: FAMOTIDINE 20 MG/2 ML IVPush SCH ×2 (09:00→21:20)
[2020-04-27] MEDS: FLORASTOR 250 MG CAPSULE PO SCH ×2 (09:00→21:20)
[2020-04-27] MEDS: PSYLLIUM PACKET PO SCH (09:00)
[2020-04-27] MEDS: POTASSIUM CHLORIDE 10% 40 MEQ/30 ML UDC PO SCH ×2 (09:00→21:20)
[2020-04-27] MEDS: ENOXAPARIN 40 MG/0.4 ML SQ SCH (09:00)
[2020-04-27] MEDS: OXYcodone IR 5MG TABLET PO PRN ×3 (09:00→21:19)
[2020-04-27] MEDS: SODIUM CHLORIDE FLUSH 10ML SYR IVF SCH ×2 (09:00→21:00)
[2020-04-27] MEDS: ACETAMINOPHEN 325 MG TABLET PO PRN ×2 (12:59→21:20)
[2020-04-27] MEDS: ERTAPENEM 1 GM in SODIUM CHLORIDE 0.9% 50 ML IV SCH (16:13)
[2020-04-27] MEDS: KETOROLAC 30 MG/1 ML IV PRN (21:20)
[2020-04-28] MEDS: ALBUTEROL/IPRATROPIUM 2.5MG/0.5MG, 3 ML NPPB SCH ×4 (01:02→20:29)
[2020-04-28 02:52] LABS: BASOPHILS % (AUTO) 1 % (0-1); EOSINOPHILS % (AUTO) 0 % (1-7); LYMPHOCYTES % (AUTO) 11 % (22-44); MEAN CORPUSCULAR HEMOGLOBIN 29.9 pg (27.5-34.5); MEAN CORPUSCULAR HGB CONC 32.9 g/dL (33.2-36.2); MEAN PLATELET VOLUME 11.4 fL (7.4-10.4); MONOCYTES % (AUTO) 9 % (2-9); NEUTROPHILS % (AUTO) 79 % (42-75); PLATELET COUNT 268 x10^3/uL (130-400); RED BLOOD COUNT 2.91 x10^6/uL (4.38-5.82); RED CELL DISTRIBUTION WIDTH 15.1 % (9.4-14.8)
[2020-04-28 02:54] LABS: ALANINE AMINOTRANSFERASE 49 U/L (12-78); ANION GAP 2 mmol/L (5-15); CALCIUM 7.8 mg/dL (8.5-10.1); CHLORIDE 112 mmol/L (98-107); CREATININE 0.66 mg/dL (0.7-1.3); MD NO
[2020-04-28 02:57] LABS: ALKALINE PHOSPHATASE 122 U/L (45-117); BILIRUBIN,TOTAL 0.4 mg/dL (0.2-1.0); TOTAL PROTEIN 5.6 g/dL (6.4-8.2)
[2020-04-28] MEDS: FENTANYL PF 2,500 MCG in SODIUM CHLORIDE 0.9% 200 ML IV PRN (03:09)
[2020-04-28] MEDS: OXYcodone IR 5MG TABLET PO PRN ×4 (03:20→20:06)
[2020-04-28] MEDS: KETOROLAC 30 MG/1 ML IV PRN (03:20)
[2020-04-28] MEDS: ACETAMINOPHEN 325 MG TABLET PO PRN ×3 (03:20→14:04)
[2020-04-28] MEDS: PROPOFOL 100 ML IV PRN ×3 (04:41→22:35)
[2020-04-28] MEDS: PSYLLIUM PACKET PO SCH (08:32)
[2020-04-28] MEDS: FAMOTIDINE 20 MG/2 ML IVPush SCH ×2 (08:32→20:05)
[2020-04-28] MEDS: FLORASTOR 250 MG CAPSULE PO SCH ×2 (08:33→20:05)
[2020-04-28] MEDS: SODIUM CHLORIDE FLUSH 10ML SYR IVF SCH ×2 (09:08→20:05)
[2020-04-28] MEDS: ENOXAPARIN 40 MG/0.4 ML SQ SCH (10:08)
[2020-04-28] MEDS: ERTAPENEM 1 GM in SODIUM CHLORIDE 0.9% 50 ML IV SCH (16:19)
[2020-04-29] MEDS: ACETAMINOPHEN 325 MG TABLET PO PRN ×3 (01:28→20:12)
[2020-04-29] MEDS: PROPOFOL 100 ML IV PRN ×3 (01:28→22:42)
[2020-04-29] MEDS: ALBUTEROL/IPRATROPIUM 2.5MG/0.5MG, 3 ML NPPB SCH ×4 (02:42→20:18)
[2020-04-29 03:44] LABS: ALANINE AMINOTRANSFERASE 49 U/L (12-78); ALBUMIN 1.1 g/dL (3.4-5.0); ANION GAP 3 mmol/L (5-15); CALCIUM 7.7 mg/dL (8.5-10.1); CHLORIDE 111 mmol/L (98-107); CREATININE 0.59 mg/dL (0.7-1.3)
[2020-04-29 03:46] LABS: ALKALINE PHOSPHATASE 141 U/L (45-117); BILIRUBIN,TOTAL 0.3 mg/dL (0.2-1.0); TOTAL PROTEIN 5.8 g/dL (6.4-8.2)
[2020-04-29 03:58] LABS: BASOPHILS % (AUTO) 1 % (0-1); EOSINOPHILS % (AUTO) 0 % (1-7); LYMPHOCYTES % (AUTO) 12 % (22-44); MEAN CORPUSCULAR HEMOGLOBIN 29.9 pg (27.5-34.5); MEAN CORPUSCULAR HGB CONC 33.6 g/dL (33.2-36.2); MEAN PLATELET VOLUME 11.4 fL (7.4-10.4); MONOCYTES % (AUTO) 7 % (2-9); NEUTROPHILS % (AUTO) 80 % (42-75); PLATELET COUNT 282 x10^3/uL (130-400); RED CELL DISTRIBUTION WIDTH 14.7 % (9.4-14.8)
[2020-04-29 03:59] LABS: MD NO
[2020-04-29] MEDS: FENTANYL PF 2,500 MCG in SODIUM CHLORIDE 0.9% 200 ML IV PRN (04:37)
[2020-04-29] MEDS: ENOXAPARIN 40 MG/0.4 ML SQ SCH (09:49)
[2020-04-29] MEDS: SODIUM CHLORIDE FLUSH 10ML SYR IVF SCH ×2 (09:50→20:13)
[2020-04-29] MEDS: PSYLLIUM PACKET PO SCH (09:50)
[2020-04-29] MEDS: FLORASTOR 250 MG CAPSULE PO SCH ×2 (09:50→20:12)
[2020-04-29] MEDS: OXYcodone IR 5MG TABLET PO PRN (09:50)
[2020-04-29] MEDS: FAMOTIDINE 20 MG/2 ML IVPush SCH ×2 (09:50→20:12)
[2020-04-29] MEDS ORDERED: LOPERAMIDE 1 MG/7.5 ML LIQUID NG ONE (10:00)
[2020-04-29] MEDS: METHADONE 10 MG TABLET PO/NG SCH ×2 (11:35→20:12)
[2020-04-29] MEDS: ERTAPENEM 1 GM in SODIUM CHLORIDE 0.9% 50 ML IV SCH (16:59)
[2020-04-30] MEDS: ALBUTEROL/IPRATROPIUM 2.5MG/0.5MG, 3 ML NPPB SCH ×4 (02:07→18:30)
[2020-04-30] MEDS: PROPOFOL 100 ML IV PRN ×3 (02:27→10:22)
[2020-04-30] MEDS: FENTANYL PF 2,500 MCG in SODIUM CHLORIDE 0.9% 200 ML IV PRN (04:30)
[2020-04-30] MEDS: ACETAMINOPHEN 325 MG TABLET PO PRN (04:30)
[2020-04-30 04:36] LABS: MD NO
[2020-04-30 05:35] LABS: BASOPHILS % (AUTO) 0 % (0-1); EOSINOPHILS % (AUTO) 0 % (1-7); LYMPHOCYTES % (AUTO) 12 % (22-44); MEAN CORPUSCULAR HEMOGLOBIN 29.2 pg (27.5-34.5); MEAN CORPUSCULAR HGB CONC 32.7 g/dL (33.2-36.2); MEAN PLATELET VOLUME 11.1 fL (7.4-10.4); MONOCYTES % (AUTO) 8 % (2-9); NEUTROPHILS % (AUTO) 80 % (42-75); PLATELET COUNT 297 x10^3/uL (130-400); RED BLOOD COUNT 2.73 x10^6/uL (4.38-5.82); RED CELL DISTRIBUTION WIDTH 14.5 % (9.4-14.8)
[2020-04-30 05:41] LABS: ALANINE AMINOTRANSFERASE 50 U/L (12-78); ALBUMIN 1.1 g/dL (3.4-5.0); ANION GAP 3 mmol/L (5-15); CALCIUM 7.7 mg/dL (8.5-10.1); CHLORIDE 107 mmol/L (98-107); CREATININE 0.53 mg/dL (0.7-1.3); MD NO; TRIGLYCERIDES 142 mg/dL (50-200)
[2020-04-30 05:43] LABS: ALKALINE PHOSPHATASE 145 U/L (45-117); BILIRUBIN,TOTAL 0.4 mg/dL (0.2-1.0); TOTAL PROTEIN 5.8 g/dL (6.4-8.2)
[2020-04-30] MEDS: FLORASTOR 250 MG CAPSULE PO SCH ×2 (07:58→20:34)
[2020-04-30] MEDS: METHADONE 10 MG TABLET PO/NG SCH ×2 (07:58→20:34)
[2020-04-30] MEDS: PSYLLIUM PACKET PO SCH (07:58)
[2020-04-30] MEDS: FAMOTIDINE 20 MG/2 ML IVPush SCH ×2 (07:58→20:34)
[2020-04-30] MEDS: SODIUM CHLORIDE FLUSH 10ML SYR IVF SCH ×2 (07:59→20:33)
[2020-04-30] MEDS: ENOXAPARIN 40 MG/0.4 ML SQ SCH (10:22)
[2020-04-30] MEDS ORDERED: OMNIPAQUE 350 MG/ML, 75ML BOTTLE ONE (16:06)
[2020-04-30] MEDS: ERTAPENEM 1 GM in SODIUM CHLORIDE 0.9% 50 ML IV SCH (16:20)
[2020-05-01] MEDS: ALBUTEROL/IPRATROPIUM 2.5MG/0.5MG, 3 ML NPPB SCH ×4 (01:30→19:13)
[2020-05-01 04:43] LABS: ALBUMIN 1.3 g/dL (3.4-5.0); ANION GAP 5 mmol/L (5-15); BASOPHILS % (AUTO) 1 % (0-1); CHLORIDE 105 mmol/L (98-107); EOSINOPHILS % (AUTO) 0 % (1-7); LYMPHOCYTES % (AUTO) 11 % (22-44); MEAN CORPUSCULAR HGB CONC 33.7 g/dL (33.2-36.2); MONOCYTES % (AUTO) 9 % (2-9); NEUTROPHILS % (AUTO) 80 % (42-75); PLATELET COUNT 308 x10^3/uL (130-400); RED BLOOD COUNT 2.85 x10^6/uL (4.38-5.82); RED CELL DISTRIBUTION WIDTH 14.5 % (9.4-14.8)
[2020-05-01 04:46] LABS: ALANINE AMINOTRANSFERASE 64 U/L (12-78); ALKALINE PHOSPHATASE 128 U/L (45-117); BILIRUBIN,TOTAL 0.3 mg/dL (0.2-1.0); CREATININE 0.57 mg/dL (0.7-1.3); MD NO; TOTAL PROTEIN 6.1 g/dL (6.4-8.2)
[2020-05-01] MEDS: FENTANYL PF 2,500 MCG in SODIUM CHLORIDE 0.9% 200 ML IV PRN (04:58)
[2020-05-01] MEDS: FLORASTOR 250 MG CAPSULE PO SCH ×3 (08:16→21:16)
[2020-05-01] MEDS: FAMOTIDINE 20 MG/2 ML IVPush SCH ×2 (08:16→20:48)
[2020-05-01] MEDS: PSYLLIUM PACKET PO SCH (08:16)
[2020-05-01] MEDS: METHADONE 10 MG TABLET PO/NG SCH ×3 (08:16→21:16)
[2020-05-01] MEDS: SODIUM CHLORIDE FLUSH 10ML SYR IVF SCH ×2 (08:18→20:48)
[2020-05-01] MEDS: ENOXAPARIN 40 MG/0.4 ML SQ SCH (10:26)
[2020-05-01] MEDS: PROPOFOL 100 ML IV PRN ×3 (10:27→20:52)
[2020-05-01] MEDS: ERTAPENEM 1 GM in SODIUM CHLORIDE 0.9% 50 ML IV SCH (16:06)
[2020-05-01] MEDS: ACETAMINOPHEN 325 MG TABLET PO PRN (21:25)
[2020-05-02] MEDS: ALBUTEROL/IPRATROPIUM 2.5MG/0.5MG, 3 ML NPPB SCH ×4 (00:47→19:11)
[2020-05-02] MEDS: PROPOFOL 100 ML IV PRN ×5 (02:03→21:23)
[2020-05-02 04:54] LABS: BASOPHILS % (AUTO) 1 % (0-1); EOSINOPHILS % (AUTO) 1 % (1-7); LYMPHOCYTES % (AUTO) 15 % (22-44); MEAN CORPUSCULAR HEMOGLOBIN 29.4 pg (27.5-34.5); MEAN CORPUSCULAR HGB CONC 33.4 g/dL (33.2-36.2); MEAN PLATELET VOLUME 10.7 fL (7.4-10.4); MONOCYTES % (AUTO) 10 % (2-9); NEUTROPHILS % (AUTO) 73 % (42-75); PLATELET COUNT 293 x10^3/uL (130-400); RED BLOOD COUNT 2.62 x10^6/uL (4.38-5.82); RED CELL DISTRIBUTION WIDTH 14.3 % (9.4-14.8)
[2020-05-02 04:56] LABS: MD NO
[2020-05-02 04:57] LABS: CALCIUM 7.9 mg/dL (8.5-10.1); CHLORIDE 106 mmol/L (98-107)
[2020-05-02 05:03] LABS: ALANINE AMINOTRANSFERASE 57 U/L (12-78); ALBUMIN 1.2 g/dL (3.4-5.0); ALKALINE PHOSPHATASE 114 U/L (45-117); ANION GAP 6 mmol/L (5-15); BILIRUBIN,TOTAL 0.3 mg/dL (0.2-1.0); CREATININE 0.64 mg/dL (0.7-1.3); TOTAL PROTEIN 6.1 g/dL (6.4-8.2)
[2020-05-02] MEDS: FENTANYL PF 2,500 MCG in SODIUM CHLORIDE 0.9% 200 ML IV PRN (06:07)
[2020-05-02] MEDS ORDERED: POTASSIUM CHLORIDE 40 MEQ in SODIUM CHLORIDE 0.9% 100 ML IV ONE (07:00)
[2020-05-02] MEDS: ENOXAPARIN 40 MG/0.4 ML SQ SCH (08:03)
[2020-05-02] MEDS: SODIUM CHLORIDE FLUSH 10ML SYR IVF SCH ×2 (08:21→21:00)
[2020-05-02] MEDS: PSYLLIUM PACKET PO SCH (08:21)
[2020-05-02] MEDS: FAMOTIDINE 20 MG/2 ML IVPush SCH ×2 (08:21→21:23)
[2020-05-02] MEDS: METHADONE 10 MG TABLET PO/NG SCH ×2 (08:21→21:00)
[2020-05-02] MEDS: FLORASTOR 250 MG CAPSULE PO SCH ×2 (08:21→21:00)
[2020-05-02] MEDS ORDERED: LIDOCAINE 1%, 20ML ONE (13:46)
[2020-05-02] MEDS ORDERED: EPINEPHRINE 1 MG/ML, 1ML ONE (13:46)
[2020-05-02] MEDS ORDERED: DEXMEDETOMIDINE 200 MCG/2 ML ONE (13:59)
[2020-05-02] MEDS: ERTAPENEM 1 GM in SODIUM CHLORIDE 0.9% 50 ML IV SCH (15:05)
[2020-05-02] MEDS ORDERED: DEXAMETHASONE 4 MG/ML, 1ML ONE (15:14)
[2020-05-02] MEDS ORDERED: ONDANSETRON 2MG/ML, 2ML ONE (15:14)
[2020-05-02] MEDS ORDERED: ESMOLOL 100 MG/10 ML ONE (15:14)
[2020-05-02] MEDS ORDERED: FENTANYL PF 100 MCG/2ML ONE (16:14)
[2020-05-02] MEDS ORDERED: MIDAZOLAM 1 MG/ML, 2ML ONE (17:54)
[2020-05-03] MEDS: PROPOFOL 100 ML IV PRN ×2 (00:56→05:05)
[2020-05-03] MEDS: ALBUTEROL/IPRATROPIUM 2.5MG/0.5MG, 3 ML NPPB SCH (01:07)
[2020-05-03 04:54] LABS: BASOPHILS % (AUTO) 1 % (0-1); EOSINOPHILS % (AUTO) 0 % (1-7); LYMPHOCYTES % (AUTO) 7 % (22-44); MEAN PLATELET VOLUME 10.3 fL (7.4-10.4); MONOCYTES % (AUTO) 8 % (2-9); NEUTROPHILS % (AUTO) 85 % (42-75); PLATELET COUNT 306 x10^3/uL (130-400); RED CELL DISTRIBUTION WIDTH 14.3 % (9.4-14.8)
[2020-05-03 05:03] LABS: MD NO
[2020-05-03] MEDS: METHADONE 10 MG TABLET PO/NG SCH ×3 (05:04→19:57)
[2020-05-03] MEDS: FLORASTOR 250 MG CAPSULE PO SCH ×3 (05:04→19:57)
[2020-05-03 05:06] LABS: ALANINE AMINOTRANSFERASE 51 U/L (12-78); ALBUMIN 1.3 g/dL (3.4-5.0); ANION GAP 5 mmol/L (5-15); CALCIUM 7.9 mg/dL (8.5-10.1); CHLORIDE 108 mmol/L (98-107); CREATININE 0.56 mg/dL (0.7-1.3)
[2020-05-03 05:08] LABS: ALKALINE PHOSPHATASE 109 U/L (45-117); BILIRUBIN,TOTAL 0.5 mg/dL (0.2-1.0); TOTAL PROTEIN 6.4 g/dL (6.4-8.2); TRIGLYCERIDES 184 mg/dL (50-200)
[2020-05-03] MEDS: PSYLLIUM PACKET PO SCH (09:00)
[2020-05-03] MEDS: ENOXAPARIN 40 MG/0.4 ML SQ SCH (09:45)
[2020-05-03] MEDS: SODIUM CHLORIDE FLUSH 10ML SYR IVF SCH ×2 (09:47→19:57)
[2020-05-03] MEDS: FAMOTIDINE 20 MG/2 ML IVPush SCH ×2 (09:47→19:58)
[2020-05-03 10:55] VITALS: BP 137/91
[2020-05-03 11:00] VITALS: BP 131/79
[2020-05-03 11:15] VITALS: BP 125/80
[2020-05-03 12:00] VITALS: BP 139/81
[2020-05-03 12:40] VITALS: BP 142/95
[2020-05-03] MEDS: ERTAPENEM 1 GM in SODIUM CHLORIDE 0.9% 50 ML IV SCH (16:40)
[2020-05-03] MEDS ORDERED: LORazepam 2 MG/ML, 1ML ONE (22:52)
[2020-05-03] MEDS ORDERED: LORazepam 2 MG/ML, 1ML IVPush ONE (23:00)
[2020-05-04] MEDS: OXYcodone IR 5MG TABLET PO PRN ×2 (03:33→18:36)
[2020-05-04 04:47] LABS: BASOPHILS % (AUTO) 1 % (0-1); EOSINOPHILS % (AUTO) 0 % (1-7); LYMPHOCYTES % (AUTO) 3 % (22-44); MEAN CORPUSCULAR HEMOGLOBIN 29.4 pg (27.5-34.5); MEAN CORPUSCULAR HGB CONC 33.1 g/dL (33.2-36.2); MEAN PLATELET VOLUME 10.1 fL (7.4-10.4); MONOCYTES % (AUTO) 8 % (2-9); NEUTROPHILS % (AUTO) 88 % (42-75); PLATELET COUNT 408 x10^3/uL (130-400); RED BLOOD COUNT 3.23 x10^6/uL (4.38-5.82); RED CELL DISTRIBUTION WIDTH 14.3 % (9.4-14.8)
[2020-05-04 04:50] LABS: MD NO
[2020-05-04 04:59] LABS: ALANINE AMINOTRANSFERASE 60 U/L (12-78); ALBUMIN 1.6 g/dL (3.4-5.0); ANION GAP 5 mmol/L (5-15); CALCIUM 8.1 mg/dL (8.5-10.1); CHLORIDE 108 mmol/L (98-107); CREATININE 0.65 mg/dL (0.7-1.3)
[2020-05-04 05:02] LABS: ALKALINE PHOSPHATASE 130 U/L (45-117); BILIRUBIN,TOTAL 0.4 mg/dL (0.2-1.0); TOTAL PROTEIN 7.1 g/dL (6.4-8.2)
[2020-05-04] MEDS: SODIUM CHLORIDE FLUSH 10ML SYR IVF SCH ×2 (09:00→20:17)
[2020-05-04] MEDS ORDERED: PROPOFOL 10 MG/ML, 20ML IVPush ONE (09:45)
[2020-05-04] MEDS: METHADONE 10 MG TABLET PO/NG SCH ×2 (09:48→20:18)
[2020-05-04] MEDS: ENOXAPARIN 40 MG/0.4 ML SQ SCH (09:49)
[2020-05-04] MEDS: PSYLLIUM PACKET PO SCH (09:49)
[2020-05-04] MEDS: FLORASTOR 250 MG CAPSULE PO SCH ×2 (09:49→20:18)
[2020-05-04] MEDS: FAMOTIDINE 20 MG/2 ML IVPush SCH ×2 (09:49→20:17)
[2020-05-04] MEDS: ERTAPENEM 1 GM in SODIUM CHLORIDE 0.9% 50 ML IV SCH (15:50)
[2020-05-04] MEDS: ACETAMINOPHEN 325 MG TABLET PO PRN (18:36)
[2020-05-05 04:28] LABS: MEAN CORPUSCULAR HEMOGLOBIN 29.9 pg (27.5-34.5); MEAN CORPUSCULAR HGB CONC 33.6 g/dL (33.2-36.2); MEAN PLATELET VOLUME 10.1 fL (7.4-10.4); PLATELET COUNT 382 x10^3/uL (130-400); RED CELL DISTRIBUTION WIDTH 14.3 % (9.4-14.8)
[2020-05-05 04:39] LABS: ALBUMIN 1.4 g/dL (3.4-5.0); ANION GAP 4 mmol/L (5-15); CHLORIDE 110 mmol/L (98-107)
[2020-05-05 04:43] LABS: ALANINE AMINOTRANSFERASE 63 U/L (12-78); ALKALINE PHOSPHATASE 126 U/L (45-117); BILIRUBIN,TOTAL 0.3 mg/dL (0.2-1.0); CREATININE 0.52 mg/dL (0.7-1.3); TOTAL PROTEIN 6.4 g/dL (6.4-8.2)
[2020-05-05 05:49] LABS: MD YES
[2020-05-05 05:50] LABS: BAND#(MANUAL) 0.72 x10^3/uL; BANDS%(MANUAL) 5 % (0-7); BASOS#(MANUAL) 0.14 x10^3/uL (0-0.1); BASOS% (MANUAL) 1 % (0-1); LYMPH#(MANUAL) 1.58 x10^3/uL (1-3.4); LYMPHS% (MANUAL) 11 % (22-44); METAMYELOCYTES# (MANUAL) 0.14 x10^3/uL (0-0); METAMYELOCYTES% (MANUAL) 1 % (0-1); MONOS#(MANUAL) 0.58 x10^3/uL (0.3-2.7); MONOS% (MANUAL) 4 % (2-9); MYELOCYTES# (MANUAL) 0.29 x10^3/uL (0-0); MYELOCYTES% (MANUAL) 2 % (0-0); SEG#(MANUAL) 10.94 x10^3/uL (1.8-6.8); SEGS% (MANUAL) 76 % (42-75)
[2020-05-05 05:51] LABS: <PLATELET ESTIMATE> INCREASED; <RBC MORPHOLOGY> NORMAL; LARGE PLATELETS 1+
[2020-05-05] MEDS: FAMOTIDINE 20 MG/2 ML IVPush SCH ×2 (08:23→20:10)
[2020-05-05] MEDS: PSYLLIUM PACKET PO SCH (08:23)
[2020-05-05] MEDS: FLORASTOR 250 MG CAPSULE PO SCH ×2 (08:23→20:11)
[2020-05-05] MEDS: METHADONE 10 MG TABLET PO/NG SCH ×2 (08:23→20:11)
[2020-05-05] MEDS: SODIUM CHLORIDE FLUSH 10ML SYR IVF SCH ×2 (08:23→20:10)
[2020-05-05] MEDS: POTASSIUM CHLORIDE 20 MEQ PACKET PO SCH ×4 (10:13→20:10)
[2020-05-05] MEDS: ENOXAPARIN 40 MG/0.4 ML SQ SCH (10:13)
[2020-05-05] MEDS: morphine SULFATE 10 MG/ML, 1ML IV PRN (13:21)
[2020-05-05 14:37] LABS: CLOSTRIDIUM DIFFICILE ANTIGEN NEGATIVE; CLOSTRIDIUM DIFFICILE TOXIN NEGATIVE (Negative)
[2020-05-05] MEDS: ERTAPENEM 1 GM in SODIUM CHLORIDE 0.9% 50 ML IV SCH (14:56)
[2020-05-05] MEDS: LOPERAMIDE 1 MG/7.5 ML LIQUID NG PRN (16:38)
[2020-05-06] MEDS: morphine SULFATE 10 MG/ML, 1ML IV PRN (04:30)
[2020-05-06 04:39] LABS: BASOPHILS % (AUTO) 1 % (0-1); EOSINOPHILS % (AUTO) 1 % (1-7); LYMPHOCYTES % (AUTO) 18 % (22-44); MEAN CORPUSCULAR HEMOGLOBIN 29.8 pg (27.5-34.5); MEAN CORPUSCULAR HGB CONC 33.4 g/dL (33.2-36.2); MEAN PLATELET VOLUME 10.1 fL (7.4-10.4); MONOCYTES % (AUTO) 10 % (2-9); NEUTROPHILS % (AUTO) 70 % (42-75); PLATELET COUNT 384 x10^3/uL (130-400); RED BLOOD COUNT 2.68 x10^6/uL (4.38-5.82); RED CELL DISTRIBUTION WIDTH 14.4 % (9.4-14.8)
[2020-05-06 04:43] LABS: ALANINE AMINOTRANSFERASE 103 U/L (12-78); ALBUMIN 1.4 g/dL (3.4-5.0); ANION GAP 4 mmol/L (5-15); CALCIUM 7.8 mg/dL (8.5-10.1); CHLORIDE 110 mmol/L (98-107); CREATININE 0.57 mg/dL (0.7-1.3); TRIGLYCERIDES 138 mg/dL (50-200)
[2020-05-06 04:45] LABS: ALKALINE PHOSPHATASE 120 U/L (45-117); BILIRUBIN,TOTAL 0.3 mg/dL (0.2-1.0); TOTAL PROTEIN 6.1 g/dL (6.4-8.2)
[2020-05-06 04:47] LABS: MD NO
[2020-05-06] MEDS: FLORASTOR 250 MG CAPSULE PO SCH ×2 (07:55→20:41)
[2020-05-06] MEDS: METHADONE 10 MG TABLET PO/NG SCH ×2 (07:55→20:40)
[2020-05-06] MEDS: SODIUM CHLORIDE FLUSH 10ML SYR IVF SCH ×2 (07:55→20:40)
[2020-05-06] MEDS: FAMOTIDINE 20 MG/2 ML IVPush SCH ×2 (07:56→20:41)
[2020-05-06] MEDS: ENOXAPARIN 40 MG/0.4 ML SQ SCH (10:00)
[2020-05-06] MEDS: PSYLLIUM PACKET PO SCH (10:57)
[2020-05-06] MEDS: ERTAPENEM 1 GM in SODIUM CHLORIDE 0.9% 50 ML IV SCH (15:39)
[2020-05-07 06:07] LABS: BASOPHILS % (AUTO) 1 % (0-1); EOSINOPHILS % (AUTO) 1 % (1-7); LYMPHOCYTES % (AUTO) 17 % (22-44); MEAN CORPUSCULAR HEMOGLOBIN 29.3 pg (27.5-34.5); MEAN CORPUSCULAR HGB CONC 32.9 g/dL (33.2-36.2); MEAN PLATELET VOLUME 10.2 fL (7.4-10.4); MONOCYTES % (AUTO) 11 % (2-9); NEUTROPHILS % (AUTO) 70 % (42-75); PLATELET COUNT 414 x10^3/uL (130-400); RED BLOOD COUNT 2.83 x10^6/uL (4.38-5.82); RED CELL DISTRIBUTION WIDTH 14.4 % (9.4-14.8)
[2020-05-07 06:08] LABS: ALBUMIN 1.4 g/dL (3.4-5.0); CALCIUM 7.9 mg/dL (8.5-10.1); CHLORIDE 107 mmol/L (98-107)
[2020-05-07 06:19] LABS: % IRON SATURATION 8 % (20-55); ALANINE AMINOTRANSFERASE 99 U/L (12-78); ALKALINE PHOSPHATASE 122 U/L (45-117); ANION GAP 2 mmol/L (5-15); BILIRUBIN,TOTAL 0.3 mg/dL (0.2-1.0); CREATINE KINASE, TOTAL 112 U/L (39-308); CREATININE 0.56 mg/dL (0.7-1.3); IRON LEVEL 15 mcg/dL (65-175); TOTAL IRON BINDING CAPACITY 187 mcg/dL (250-450); TOTAL PROTEIN 6.3 g/dL (6.4-8.2)
[2020-05-07 06:21] LABS: D-DIMER 16.11 ug/mlFEU (0.00-0.52)
[2020-05-07 06:23] LABS: MD NO
[2020-05-07] MEDS: FAMOTIDINE 20 MG/2 ML IVPush SCH ×2 (09:43→21:23)
[2020-05-07] MEDS: PSYLLIUM PACKET PO SCH (09:43)
[2020-05-07] MEDS: METHADONE 10 MG TABLET PO/NG SCH ×2 (09:43→21:25)
[2020-05-07] MEDS: FLORASTOR 250 MG CAPSULE PO SCH ×2 (09:43→21:24)
[2020-05-07] MEDS: SODIUM CHLORIDE FLUSH 10ML SYR IVF SCH ×2 (09:44→21:23)
[2020-05-07] MEDS: ENOXAPARIN 40 MG/0.4 ML SQ SCH (10:12)
[2020-05-07] MEDS: OXYcodone IR 5MG TABLET PO PRN ×2 (14:51→21:24)
[2020-05-07] MEDS: ERTAPENEM 1 GM in SODIUM CHLORIDE 0.9% 50 ML IV SCH (14:54)
[2020-05-08 05:23] LABS: HCT (SEDRATE) 23.8 % (39.2-51.8)
[2020-05-08 05:28] LABS: BASOPHILS % (AUTO) 1 % (0-1); EOSINOPHILS % (AUTO) 2 % (1-7); LYMPHOCYTES % (AUTO) 18 % (22-44); MEAN CORPUSCULAR HEMOGLOBIN 29.7 pg (27.5-34.5); MEAN CORPUSCULAR HGB CONC 33.7 g/dL (33.2-36.2); MONOCYTES % (AUTO) 12 % (2-9); NEUTROPHILS % (AUTO) 68 % (42-75); PLATELET COUNT 419 x10^3/uL (130-400); RED BLOOD COUNT 2.72 x10^6/uL (4.38-5.82); RED CELL DISTRIBUTION WIDTH 14.4 % (9.4-14.8)
[2020-05-08 05:44] LABS: MD NO
[2020-05-08 05:47] LABS: ALANINE AMINOTRANSFERASE 75 U/L (12-78); ALBUMIN 1.6 g/dL (3.4-5.0); ALKALINE PHOSPHATASE 120 U/L (45-117); BILIRUBIN,TOTAL 0.2 mg/dL (0.2-1.0); CALCIUM 8.1 mg/dL (8.5-10.1); CREATININE 0.62 mg/dL (0.7-1.3); TOTAL PROTEIN 6.4 g/dL (6.4-8.2)
[2020-05-08 05:55] LABS: ANION GAP 4 mmol/L (5-15); CHLORIDE 103 mmol/L (98-107)
[2020-05-08] MEDS: FAMOTIDINE 20 MG/2 ML IVPush SCH ×2 (08:57→20:14)
[2020-05-08] MEDS: SODIUM CHLORIDE FLUSH 10ML SYR IVF SCH ×2 (08:57→20:13)
[2020-05-08] MEDS: BACITRACIN ZINC OINT 500U/GM, 0.9 GM TP SCH ×2 (08:57→20:17)
[2020-05-08] MEDS: FLORASTOR 250 MG CAPSULE PO SCH ×2 (08:58→20:14)
[2020-05-08] MEDS: PSYLLIUM PACKET PO SCH (08:58)
[2020-05-08] MEDS: ENOXAPARIN 40 MG/0.4 ML SQ SCH (08:58)
[2020-05-08] MEDS: METHADONE 10 MG TABLET PO/NG SCH ×2 (08:59→20:14)
[2020-05-08] MEDS: OXYcodone IR 5MG TABLET PO PRN ×2 (11:33→21:18)
[2020-05-08] MEDS: morphine SULFATE 10 MG/ML, 1ML IV PRN (12:25)
[2020-05-08] MEDS: ERTAPENEM 1 GM in SODIUM CHLORIDE 0.9% 50 ML IV SCH (16:37)
[2020-05-09 05:29] LABS: BASOPHILS % (AUTO) 1 % (0-1); EOSINOPHILS % (AUTO) 1 % (1-7); LYMPHOCYTES % (AUTO) 16 % (22-44); MEAN CORPUSCULAR HEMOGLOBIN 28.9 pg (27.5-34.5); MEAN CORPUSCULAR HGB CONC 32.7 g/dL (33.2-36.2); MEAN PLATELET VOLUME 10.1 fL (7.4-10.4); MONOCYTES % (AUTO) 13 % (2-9); NEUTROPHILS % (AUTO) 69 % (42-75); PLATELET COUNT 450 x10^3/uL (130-400); RED BLOOD COUNT 3.09 x10^6/uL (4.38-5.82); RED CELL DISTRIBUTION WIDTH 14.3 % (9.4-14.8)
[2020-05-09 05:37] LABS: ALBUMIN 1.8 g/dL (3.4-5.0); ANION GAP 6 mmol/L (5-15); CALCIUM 8.3 mg/dL (8.5-10.1); CHLORIDE 100 mmol/L (98-107)
[2020-05-09 05:42] LABS: ALANINE AMINOTRANSFERASE 71 U/L (12-78); ALKALINE PHOSPHATASE 138 U/L (45-117); BILIRUBIN,TOTAL 0.7 mg/dL (0.2-1.0); CREATININE 0.53 mg/dL (0.7-1.3); TOTAL PROTEIN 7.2 g/dL (6.4-8.2); TRIGLYCERIDES 147 mg/dL (50-200)
[2020-05-09 05:56] LABS: MD SCAN
[2020-05-09] MEDS: PSYLLIUM PACKET PO SCH (08:23)
[2020-05-09] MEDS: METHADONE 10 MG TABLET PO/NG SCH ×2 (08:23→20:26)
[2020-05-09] MEDS: BACITRACIN ZINC OINT 500U/GM, 0.9 GM TP SCH ×2 (08:23→20:27)
[2020-05-09] MEDS: FAMOTIDINE 20 MG/2 ML IVPush SCH ×2 (08:23→20:26)
[2020-05-09] MEDS: SODIUM CHLORIDE FLUSH 10ML SYR IVF SCH ×2 (08:24→20:27)
[2020-05-09] MEDS: ENOXAPARIN 40 MG/0.4 ML SQ SCH (08:24)
[2020-05-09] MEDS: FLORASTOR 250 MG CAPSULE PO SCH ×2 (08:24→20:26)
[2020-05-09] MEDS: OXYcodone IR 5MG TABLET PO PRN (13:44)
[2020-05-09] MEDS: ERTAPENEM 1 GM in SODIUM CHLORIDE 0.9% 50 ML IV SCH (16:28)
[2020-05-10] MEDS: OXYcodone IR 5MG TABLET PO PRN (04:15)
[2020-05-10 04:26] LABS: BASOPHILS % (AUTO) 1 % (0-1); EOSINOPHILS % (AUTO) 2 % (1-7); LYMPHOCYTES % (AUTO) 15 % (22-44); MEAN CORPUSCULAR HEMOGLOBIN 28.9 pg (27.5-34.5); MEAN CORPUSCULAR HGB CONC 32.8 g/dL (33.2-36.2); MONOCYTES % (AUTO) 13 % (2-9); NEUTROPHILS % (AUTO) 70 % (42-75); PLATELET COUNT 435 x10^3/uL (130-400); RED BLOOD COUNT 3.09 x10^6/uL (4.38-5.82); RED CELL DISTRIBUTION WIDTH 14.4 % (9.4-14.8)
[2020-05-10 04:35] LABS: ALANINE AMINOTRANSFERASE 51 U/L (12-78); ALBUMIN 1.7 g/dL (3.4-5.0); ANION GAP 0 mmol/L (5-15); CALCIUM 8.3 mg/dL (8.5-10.1); CHLORIDE 98 mmol/L (98-107); CREATININE 0.49 mg/dL (0.7-1.3)
[2020-05-10 04:38] LABS: ALKALINE PHOSPHATASE 136 U/L (45-117); BILIRUBIN,TOTAL 0.3 mg/dL (0.2-1.0)
[2020-05-10 04:52] LABS: MD SCAN
[2020-05-10] MEDS: FAMOTIDINE 20 MG/2 ML IVPush SCH ×2 (08:35→20:32)
[2020-05-10] MEDS: SODIUM CHLORIDE FLUSH 10ML SYR IVF SCH ×2 (08:35→20:32)
[2020-05-10] MEDS: METHADONE 10 MG TABLET PO/NG SCH ×2 (08:36→21:11)
[2020-05-10] MEDS: FLORASTOR 250 MG CAPSULE PO SCH ×2 (08:36→20:33)
[2020-05-10] MEDS: PSYLLIUM PACKET PO SCH (08:36)
[2020-05-10] MEDS: BACITRACIN ZINC OINT 500U/GM, 0.9 GM TP SCH ×2 (08:36→20:33)
[2020-05-10] MEDS: ENOXAPARIN 40 MG/0.4 ML SQ SCH (11:31)
[2020-05-10] MEDS: ERTAPENEM 1 GM in SODIUM CHLORIDE 0.9% 50 ML IV SCH (18:45)
[2020-05-11 04:34] LABS: BASOPHILS % (AUTO) 1 % (0-1); EOSINOPHILS % (AUTO) 1 % (1-7); LYMPHOCYTES % (AUTO) 13 % (22-44); MEAN CORPUSCULAR HEMOGLOBIN 28.5 pg (27.5-34.5); MEAN CORPUSCULAR HGB CONC 32.9 g/dL (33.2-36.2); MONOCYTES % (AUTO) 11 % (2-9); NEUTROPHILS % (AUTO) 74 % (42-75); PLATELET COUNT 389 x10^3/uL (130-400); RED BLOOD COUNT 3.18 x10^6/uL (4.38-5.82); RED CELL DISTRIBUTION WIDTH 14.8 % (9.4-14.8)
[2020-05-11 04:39] LABS: MD NO
[2020-05-11 04:46] LABS: ALBUMIN 1.9 g/dL (3.4-5.0); ANION GAP 2 mmol/L (5-15); CALCIUM 8.5 mg/dL (8.5-10.1); CHLORIDE 97 mmol/L (98-107)
[2020-05-11 04:49] LABS: ALANINE AMINOTRANSFERASE 46 U/L (12-78); ALKALINE PHOSPHATASE 136 U/L (45-117); BILIRUBIN,TOTAL 0.6 mg/dL (0.2-1.0); CREATININE 0.53 mg/dL (0.7-1.3); TOTAL PROTEIN 7.3 g/dL (6.4-8.2)
[2020-05-11] MEDS: SODIUM CHLORIDE FLUSH 10ML SYR IVF SCH ×2 (07:45→20:02)
[2020-05-11] MEDS: BACITRACIN ZINC OINT 500U/GM, 0.9 GM TP SCH ×2 (07:50→20:02)
[2020-05-11] MEDS: FAMOTIDINE 20 MG/2 ML IVPush SCH ×2 (07:57→20:02)
[2020-05-11] MEDS: FLORASTOR 250 MG CAPSULE PO SCH ×2 (07:57→20:02)
[2020-05-11] MEDS: PSYLLIUM PACKET PO SCH (07:57)
[2020-05-11] MEDS: ENOXAPARIN 40 MG/0.4 ML SQ SCH (10:20)
[2020-05-11] MEDS: ERTAPENEM 1 GM in SODIUM CHLORIDE 0.9% 50 ML IV SCH (16:52)
[2020-05-12 04:51] LABS: BASOPHILS % (AUTO) 1 % (0-1); EOSINOPHILS % (AUTO) 1 % (1-7); LYMPHOCYTES % (AUTO) 15 % (22-44); MEAN CORPUSCULAR HEMOGLOBIN 28.3 pg (27.5-34.5); MEAN CORPUSCULAR HGB CONC 33.1 g/dL (33.2-36.2); MEAN PLATELET VOLUME 10.1 fL (7.4-10.4); MONOCYTES % (AUTO) 14 % (2-9); NEUTROPHILS % (AUTO) 69 % (42-75); PLATELET COUNT 423 x10^3/uL (130-400); RED BLOOD COUNT 3.31 x10^6/uL (4.38-5.82); RED CELL DISTRIBUTION WIDTH 14.8 % (9.4-14.8)
[2020-05-12 05:00] LABS: ALBUMIN 1.9 g/dL (3.4-5.0); ANION GAP 3 mmol/L (5-15); CALCIUM 8.4 mg/dL (8.5-10.1); CHLORIDE 95 mmol/L (98-107)
[2020-05-12 05:03] LABS: ALANINE AMINOTRANSFERASE 41 U/L (12-78); ALKALINE PHOSPHATASE 139 U/L (45-117); BILIRUBIN,TOTAL 0.5 mg/dL (0.2-1.0); CREATININE 0.49 mg/dL (0.7-1.3); TOTAL PROTEIN 7.5 g/dL (6.4-8.2); TRIGLYCERIDES 119 mg/dL (50-200)
[2020-05-12 05:44] LABS: MD SCAN
[2020-05-12] MEDS: FAMOTIDINE 20 MG/2 ML IVPush SCH ×2 (07:55→19:52)
[2020-05-12] MEDS: PSYLLIUM PACKET PO SCH (07:55)
[2020-05-12] MEDS: SODIUM CHLORIDE FLUSH 10ML SYR IVF SCH ×2 (07:55→19:40)
[2020-05-12] MEDS: FLORASTOR 250 MG CAPSULE PO SCH ×2 (07:55→19:40)
[2020-05-12] MEDS: BACITRACIN ZINC OINT 500U/GM, 0.9 GM TP SCH ×2 (07:57→19:52)
[2020-05-12] MEDS: ENOXAPARIN 40 MG/0.4 ML SQ SCH (09:22)
[2020-05-12] MEDS: ERTAPENEM 1 GM in SODIUM CHLORIDE 0.9% 50 ML IV SCH (16:51)
[2020-05-12] MEDS: morphine SULFATE 10 MG/ML, 1ML IV PRN (23:34)
[2020-05-13 03:46] LABS: BASOPHILS % (AUTO) 1 % (0-1); EOSINOPHILS % (AUTO) 0 % (1-7); LYMPHOCYTES % (AUTO) 11 % (22-44); MEAN CORPUSCULAR HEMOGLOBIN 27.6 pg (27.5-34.5); MEAN CORPUSCULAR HGB CONC 32.8 g/dL (33.2-36.2); MEAN PLATELET VOLUME 10.3 fL (7.4-10.4); MONOCYTES % (AUTO) 12 % (2-9); NEUTROPHILS % (AUTO) 76 % (42-75); PLATELET COUNT 394 x10^3/uL (130-400); RED CELL DISTRIBUTION WIDTH 14.6 % (9.4-14.8)
[2020-05-13 03:56] LABS: ALANINE AMINOTRANSFERASE 37 U/L (12-78); ALBUMIN 2.1 g/dL (3.4-5.0); ANION GAP 5 mmol/L (5-15); CALCIUM 8.7 mg/dL (8.5-10.1); CHLORIDE 98 mmol/L (98-107)
[2020-05-13 03:59] LABS: ALKALINE PHOSPHATASE 129 U/L (45-117); BILIRUBIN,TOTAL 0.5 mg/dL (0.2-1.0); CREATININE 0.59 mg/dL (0.7-1.3); TOTAL PROTEIN 7.7 g/dL (6.4-8.2)
[2020-05-13 04:26] LABS: MD SCAN
[2020-05-13] MEDS: SODIUM CHLORIDE FLUSH 10ML SYR IVF SCH ×2 (07:43→20:08)
[2020-05-13] MEDS: FAMOTIDINE 20 MG/2 ML IVPush SCH ×2 (07:43→20:09)
[2020-05-13] MEDS: FLORASTOR 250 MG CAPSULE PO SCH ×2 (09:00→20:09)
[2020-05-13] MEDS: PSYLLIUM PACKET PO SCH (09:00)
[2020-05-13] MEDS: ENOXAPARIN 40 MG/0.4 ML SQ SCH (10:00)
[2020-05-13] MEDS: ERTAPENEM 1 GM in SODIUM CHLORIDE 0.9% 50 ML IV SCH (16:54)
[2020-05-13] MEDS: BACITRACIN OINT 500U/GM, 15 GM TP SCH (20:09)
[2020-05-13] MEDS: MIDAZOLAM 1 MG/ML, 2ML IVPush PRN ×2 (20:09→23:39)
[2020-05-14 03:51] LABS: ALANINE AMINOTRANSFERASE 36 U/L (12-78); ALBUMIN 2.2 g/dL (3.4-5.0); ANION GAP 6 mmol/L (5-15); CALCIUM 8.7 mg/dL (8.5-10.1); CHLORIDE 98 mmol/L (98-107); CREATININE 0.49 mg/dL (0.7-1.3)
[2020-05-14 03:53] LABS: ALKALINE PHOSPHATASE 125 U/L (45-117); BILIRUBIN,TOTAL 0.5 mg/dL (0.2-1.0); TOTAL PROTEIN 7.8 g/dL (6.4-8.2)
[2020-05-14 04:06] LABS: BASOPHILS % (AUTO) 1 % (0-1); EOSINOPHILS % (AUTO) 0 % (1-7); LYMPHOCYTES % (AUTO) 12 % (22-44); MEAN CORPUSCULAR HEMOGLOBIN 27.2 pg (27.5-34.5); MEAN CORPUSCULAR HGB CONC 32.3 g/dL (33.2-36.2); MEAN PLATELET VOLUME 10.2 fL (7.4-10.4); MONOCYTES % (AUTO) 13 % (2-9); NEUTROPHILS % (AUTO) 74 % (42-75); PLATELET COUNT 430 x10^3/uL (130-400); RED BLOOD COUNT 3.71 x10^6/uL (4.38-5.82); RED CELL DISTRIBUTION WIDTH 15.2 % (9.4-14.8)
[2020-05-14 04:55] LABS: MD MORPH REVIEW ONLY
[2020-05-14 04:56] LABS: ANISOCYTOSIS 1+; POLYCHROMASIA 1+
[2020-05-14 04:57] LABS: <PLATELET ESTIMATE> INCREASED; LARGE PLATELETS 1+; OVALOCYTES 1+
[2020-05-14] MEDS: PSYLLIUM PACKET PO SCH (08:40)
[2020-05-14] MEDS: FLORASTOR 250 MG CAPSULE PO SCH ×2 (08:40→20:46)
[2020-05-14] MEDS: SODIUM CHLORIDE FLUSH 10ML SYR IVF SCH ×2 (09:48→20:46)
[2020-05-14] MEDS: FAMOTIDINE 20 MG/2 ML IVPush SCH (09:48)
[2020-05-14] MEDS: ENOXAPARIN 40 MG/0.4 ML SQ SCH (09:48)
[2020-05-14] MEDS: BACITRACIN OINT 500U/GM, 15 GM TP SCH ×2 (09:48→20:46)
[2020-05-14] MEDS: ERTAPENEM 1 GM in SODIUM CHLORIDE 0.9% 50 ML IV SCH (15:48)
[2020-05-15 03:34] LABS: BASOPHILS % (AUTO) 1 % (0-1); EOSINOPHILS % (AUTO) 0 % (1-7); LYMPHOCYTES % (AUTO) 11 % (22-44); MEAN CORPUSCULAR HEMOGLOBIN 27.1 pg (27.5-34.5); MEAN CORPUSCULAR HGB CONC 32.1 g/dL (33.2-36.2); MEAN PLATELET VOLUME 10.2 fL (7.4-10.4); MONOCYTES % (AUTO) 14 % (2-9); NEUTROPHILS % (AUTO) 74 % (42-75); PLATELET COUNT 391 x10^3/uL (130-400); RED BLOOD COUNT 3.88 x10^6/uL (4.38-5.82); RED CELL DISTRIBUTION WIDTH 14.9 % (9.4-14.8)
[2020-05-15 04:08] LABS: MD SCAN
[2020-05-15] MEDS: BACITRACIN OINT 500U/GM, 15 GM TP SCH ×2 (09:33→20:56)
[2020-05-15] MEDS: ENOXAPARIN 40 MG/0.4 ML SQ SCH (09:33)
[2020-05-15] MEDS: SODIUM CHLORIDE FLUSH 10ML SYR IVF SCH ×2 (09:34→20:56)
[2020-05-15 10:08] LABS: HCT (SEDRATE) 33.5 % (39.2-51.8)
[2020-05-15] MEDS ORDERED: OMNIPAQUE 350 MG/ML, 75ML BOTTLE ONE (10:45)
[2020-05-15 11:33] LABS: MICROSCOPIC NOT IND
[2020-05-15] MEDS: FLORASTOR 250 MG CAPSULE PO SCH ×2 (15:24→20:55)
[2020-05-15] MEDS: PSYLLIUM PACKET PO SCH (15:24)
[2020-05-15] MEDS: ERTAPENEM 1 GM in SODIUM CHLORIDE 0.9% 50 ML IV SCH (15:24)
[2020-05-15] MEDS ORDERED: POTASSIUM CHLORIDE 20 MEQ PACKET PO ONE (18:00)
[2020-05-15] MEDS ORDERED: FUROSEMIDE 40 MG/4 ML IV ONE (18:00)
[2020-05-15] MEDS: OXYcodone 5 MG/5 ML ORAL.SOL UDC PO PRN (20:57)
[2020-05-15 22:45] LABS: CLOSTRIDIUM DIFFICILE ANTIGEN NEGATIVE; CLOSTRIDIUM DIFFICILE TOXIN NEGATIVE (Negative)
[2020-05-16 03:15] LABS: BASOPHILS % (AUTO) 1 % (0-1); EOSINOPHILS % (AUTO) 1 % (1-7); LYMPHOCYTES % (AUTO) 10 % (22-44); MEAN CORPUSCULAR HEMOGLOBIN 27.5 pg (27.5-34.5); MEAN CORPUSCULAR HGB CONC 33.2 g/dL (33.2-36.2); MEAN PLATELET VOLUME 9.7 fL (7.4-10.4); MONOCYTES % (AUTO) 13 % (2-9); NEUTROPHILS % (AUTO) 76 % (42-75); PLATELET COUNT 393 x10^3/uL (130-400); RED BLOOD COUNT 3.85 x10^6/uL (4.38-5.82); RED CELL DISTRIBUTION WIDTH 15.8 % (9.4-14.8)
[2020-05-16 03:26] LABS: ANION GAP 6 mmol/L (5-15); CALCIUM 8.5 mg/dL (8.5-10.1); CHLORIDE 96 mmol/L (98-107); CREATININE 0.54 mg/dL (0.7-1.3)
[2020-05-16 04:06] LABS: MD SCAN
[2020-05-16] MEDS ORDERED: POTASSIUM CHLORIDE 10% 20 MEQ/15 ML UDC PO ONE (07:00)
[2020-05-16] MEDS: SODIUM CHLORIDE FLUSH 10ML SYR IVF SCH ×2 (07:49→20:24)
[2020-05-16] MEDS: BACITRACIN OINT 500U/GM, 15 GM TP SCH ×2 (07:50→20:24)
[2020-05-16] MEDS: PSYLLIUM PACKET PO SCH (08:24)
[2020-05-16] MEDS: FLORASTOR 250 MG CAPSULE PO SCH ×2 (08:24→20:24)
[2020-05-16] MEDS: ENOXAPARIN 40 MG/0.4 ML SQ SCH (10:30)
[2020-05-16] MEDS: ERTAPENEM 1 GM in SODIUM CHLORIDE 0.9% 50 ML IV SCH (15:50)
[2020-05-16] MEDS: OXYcodone 5 MG/5 ML ORAL.SOL UDC PO PRN (20:25)
[2020-05-17] MEDS: ENOXAPARIN 40 MG/0.4 ML SQ SCH (08:29)
[2020-05-17] MEDS: SODIUM CHLORIDE FLUSH 10ML SYR IVF SCH ×2 (09:00→20:14)
[2020-05-17] MEDS ORDERED: ESCITALOPRAM 10MG TABLET PO SCH (09:00)
[2020-05-17] MEDS: BACITRACIN OINT 500U/GM, 15 GM TP SCH ×2 (09:00→20:15)
[2020-05-17] MEDS: PSYLLIUM PACKET PO SCH (09:00)
[2020-05-17] MEDS: FLORASTOR 250 MG CAPSULE PO SCH ×2 (09:00→20:31)
[2020-05-17] MEDS: ESCITALOPRAM 10MG TABLET PO SCH (10:48)
[2020-05-17] MEDS ORDERED: FENTANYL PF 100 MCG/2ML IV PRN (13:30)
[2020-05-17] MEDS ORDERED: PROMETHAZINE 25 MG/ML, 1ML IVPush PRN (13:30)
[2020-05-17] MEDS ORDERED: ONDANSETRON 2MG/ML, 2ML IVPush PRN (13:30)
[2020-05-17] MEDS ORDERED: MEPERIDINE/PF 25MG/0.5ML IVPush PRN (13:30)
[2020-05-17] MEDS ORDERED: MIDAZOLAM 1 MG/ML, 2ML ONE (15:06)
[2020-05-17] MEDS ORDERED: FENTANYL PF 100 MCG/2ML ONE ×2 (15:06→17:26)
[2020-05-17] MEDS ORDERED: BUPIVACAINE/PF 0.25% ONE (15:09)
[2020-05-17] MEDS ORDERED: PHENYLEPHRINE 10 MG/ML ONE (15:25)
[2020-05-17] MEDS ORDERED: SUGAMMADEX 200 MG/2 ML IVPush ONE (15:25)
[2020-05-17] MEDS ORDERED: ROCURONIUM 10 MG/ML,10ML ONE (15:25)
[2020-05-17] MEDS ORDERED: ONDANSETRON 2MG/ML, 2ML ONE (15:25)
[2020-05-17] MEDS ORDERED: MEPERIDINE/PF 25MG/ML,1ML ONE (17:27)
[2020-05-17] MEDS ORDERED: HYDROmorphone 2 MG/ML, 1ML ONE (17:28)
[2020-05-17] MEDS: HYDROmorphone 1 MG/ML, 1ML INJ IVPush PRN ×3 (17:50→18:03)
[2020-05-17] MEDS: ERTAPENEM 1 GM in SODIUM CHLORIDE 0.9% 50 ML IV SCH (20:14)
[2020-05-17] MEDS: OXYcodone IR 5MG TABLET PO PRN (20:31)
[2020-05-18] MEDS: MORPHINE SULFATE 4 MG/ML, 1ML IV PRN ×2 (00:06→04:04)
[2020-05-18] MEDS: ACETAMINOPHEN 325 MG TABLET PO PRN (00:40)
[2020-05-18] MEDS ORDERED: METOPROLOL 1 MG/ML, 5ML IVPush ONE (01:00)
[2020-05-18 03:34] LABS: MEAN CORPUSCULAR HEMOGLOBIN 27.1 pg (27.5-34.5); MEAN CORPUSCULAR HGB CONC 32.9 g/dL (33.2-36.2); MEAN PLATELET VOLUME 9.9 fL (7.4-10.4); PLATELET COUNT 416 x10^3/uL (130-400); RED BLOOD COUNT 3.75 x10^6/uL (4.38-5.82)
[2020-05-18 04:03] LABS: ANION GAP 7 mmol/L (5-15); CALCIUM 8.3 mg/dL (8.5-10.1); CHLORIDE 102 mmol/L (98-107); CREATININE 0.55 mg/dL (0.7-1.3)
[2020-05-18 04:07] LABS: MD YES
[2020-05-18 04:09] LABS: ANISOCYTOSIS 1+; BANDS%(MANUAL) 2 % (0-7); EOS#(MANUAL) 0.25 x10^3/uL (0.0-0.4); EOS% (MANUAL) 1 % (1-7); LYMPH#(MANUAL) 2.23 x10^3/uL (1-3.4); LYMPHS% (MANUAL) 9 % (22-44); MONOS#(MANUAL) 0.99 x10^3/uL (0.3-2.7); MONOS% (MANUAL) 4 % (2-9); MYELOCYTES# (MANUAL) 0.25 x10^3/uL (0-0); MYELOCYTES% (MANUAL) 1 % (0-0); POLYCHROMASIA 1+; SEG#(MANUAL) 20.58 x10^3/uL (1.8-6.8); SEGS% (MANUAL) 83 % (42-75)
[2020-05-18 04:10] LABS: <PLATELET ESTIMATE> INCREASED; HYPOCHROMIA 1+; LARGE PLATELETS 1+; OVALOCYTES 1+
[2020-05-18] MEDS: OXYcodone IR 5MG TABLET PO PRN (07:02)
[2020-05-18] MEDS: KETOROLAC 30 MG/1 ML IV SCH ×3 (09:39→20:35)
[2020-05-18] MEDS: PSYLLIUM PACKET PO SCH (09:41)
[2020-05-18] MEDS: FLORASTOR 250 MG CAPSULE PO SCH ×2 (09:41→20:35)
[2020-05-18] MEDS: ENOXAPARIN 40 MG/0.4 ML SQ SCH (09:41)
[2020-05-18] MEDS: ESCITALOPRAM 10MG TABLET PO SCH (09:41)
[2020-05-18] MEDS: BACITRACIN OINT 500U/GM, 15 GM TP SCH ×2 (09:42→21:00)
[2020-05-18] MEDS: SODIUM CHLORIDE FLUSH 10ML SYR IVF SCH ×2 (09:42→21:00)
[2020-05-18] MEDS: ERTAPENEM 1 GM in SODIUM CHLORIDE 0.9% 50 ML IV SCH (20:36)
[2020-05-19] MEDS: KETOROLAC 30 MG/1 ML IV SCH (04:20)
[2020-05-19 05:01] LABS: ANION GAP 5 mmol/L (5-15); CALCIUM 8.5 mg/dL (8.5-10.1); CHLORIDE 104 mmol/L (98-107); CREATININE 0.58 mg/dL (0.7-1.3)
[2020-05-19 05:35] LABS: BASOPHILS % (AUTO) 0 % (0-1); EOSINOPHILS % (AUTO) 0 % (1-7); LYMPHOCYTES % (AUTO) 8 % (22-44); MEAN CORPUSCULAR HEMOGLOBIN 26.4 pg (27.5-34.5); MEAN CORPUSCULAR HGB CONC 31.7 g/dL (33.2-36.2); MEAN PLATELET VOLUME 9.6 fL (7.4-10.4); MONOCYTES % (AUTO) 13 % (2-9); NEUTROPHILS % (AUTO) 79 % (42-75); PLATELET COUNT 386 x10^3/uL (130-400); RED BLOOD COUNT 3.77 x10^6/uL (4.38-5.82); RED CELL DISTRIBUTION WIDTH 16.1 % (9.4-14.8)
[2020-05-19 05:37] LABS: MD NO
[2020-05-19] MEDS: PSYLLIUM PACKET PO SCH (07:30)
[2020-05-19] MEDS: SODIUM CHLORIDE FLUSH 10ML SYR IVF SCH ×2 (07:59→20:49)
[2020-05-19] MEDS: FLORASTOR 250 MG CAPSULE PO SCH ×2 (07:59→21:00)
[2020-05-19] MEDS: ESCITALOPRAM 10MG TABLET PO SCH (07:59)
[2020-05-19] MEDS: OXYcodone IR 5MG TABLET PO PRN ×2 (08:00→13:22)
[2020-05-19] MEDS: BACITRACIN OINT 500U/GM, 15 GM TP SCH ×2 (08:01→20:49)
[2020-05-19] MEDS ORDERED: ALBUTEROL/IPRATROPIUM 2.5MG/0.5MG, 3 ML ONE (09:26)
[2020-05-19] MEDS: ENOXAPARIN 40 MG/0.4 ML SQ SCH (09:41)
[2020-05-19] MEDS: GUAIFENESIN 100 MG/5 ML, 10ML UDC PO/NG SCH ×3 (09:41→20:21)
[2020-05-19] MEDS: ALBUTEROL/IPRATROPIUM 2.5MG/0.5MG, 3 ML NPPB SCH ×2 (09:49→14:00)
[2020-05-19] MEDS: OXYcodone 5 MG/5 ML ORAL.SOL UDC PO PRN (20:21)
[2020-05-19] MEDS: ERTAPENEM 1 GM in SODIUM CHLORIDE 0.9% 50 ML IV SCH (20:49)
[2020-05-20] MEDS: OXYcodone 5 MG/5 ML ORAL.SOL UDC PO PRN ×3 (00:43→22:10)
[2020-05-20] MEDS: ALBUTEROL/IPRATROPIUM 2.5MG/0.5MG, 3 ML NPPB SCH ×4 (01:26→18:48)
[2020-05-20 04:33] LABS: BASOPHILS % (AUTO) 1 % (0-1); EOSINOPHILS % (AUTO) 1 % (1-7); LYMPHOCYTES % (AUTO) 15 % (22-44); MEAN CORPUSCULAR HEMOGLOBIN 26.9 pg (27.5-34.5); MEAN PLATELET VOLUME 9.8 fL (7.4-10.4); MONOCYTES % (AUTO) 14 % (2-9); NEUTROPHILS % (AUTO) 69 % (42-75); PLATELET COUNT 373 x10^3/uL (130-400); RED BLOOD COUNT 3.41 x10^6/uL (4.38-5.82); RED CELL DISTRIBUTION WIDTH 15.8 % (9.4-14.8)
[2020-05-20 04:39] LABS: ALANINE AMINOTRANSFERASE 20 U/L (12-78); ALBUMIN 1.7 g/dL (3.4-5.0); ANION GAP 6 mmol/L (5-15); CALCIUM 8.3 mg/dL (8.5-10.1); CHLORIDE 103 mmol/L (98-107); CREATININE 0.62 mg/dL (0.7-1.3)
[2020-05-20 04:49] LABS: ALKALINE PHOSPHATASE 107 U/L (45-117); BILIRUBIN,TOTAL 0.2 mg/dL (0.2-1.0); TOTAL PROTEIN 7.1 g/dL (6.4-8.2)
[2020-05-20] MEDS: GUAIFENESIN 100 MG/5 ML, 10ML UDC PO/NG SCH ×4 (05:43→22:10)
[2020-05-20 06:37] LABS: MD NO
[2020-05-20] MEDS: SODIUM CHLORIDE FLUSH 10ML SYR IVF SCH ×2 (08:47→22:09)
[2020-05-20] MEDS: FLORASTOR 250 MG CAPSULE PO SCH ×2 (08:47→22:10)
[2020-05-20] MEDS: ESCITALOPRAM 10MG TABLET PO SCH (08:47)
[2020-05-20] MEDS: BACITRACIN OINT 500U/GM, 15 GM TP SCH ×2 (08:47→22:10)
[2020-05-20] MEDS: PSYLLIUM PACKET PO SCH (08:47)
[2020-05-20] MEDS: ENOXAPARIN 40 MG/0.4 ML SQ SCH (09:50)
[2020-05-20] MEDS: OXYcodone IR 5MG TABLET PO PRN ×3 (09:51→18:11)
[2020-05-20] MEDS: CEFEPIME 1 GM in DEXTROSE 5% 50 ML IV SCH ×2 (11:46→17:40)
[2020-05-20] MEDS: ALBUTEROL/IPRATROPIUM 2.5MG/0.5MG, 3 ML NPPB PRN ×2 (17:00→23:23)
[2020-05-21] MEDS: ALBUTEROL/IPRATROPIUM 2.5MG/0.5MG, 3 ML NPPB SCH ×4 (01:46→19:28)
[2020-05-21] MEDS: OXYcodone 5 MG/5 ML ORAL.SOL UDC PO PRN ×3 (02:09→20:22)
[2020-05-21] MEDS: CEFEPIME 1 GM in DEXTROSE 5% 50 ML IV SCH ×3 (03:00→18:15)
[2020-05-21] MEDS: GUAIFENESIN 100 MG/5 ML, 10ML UDC PO/NG SCH ×4 (06:01→20:21)
[2020-05-21] MEDS: BACITRACIN OINT 500U/GM, 15 GM TP SCH ×2 (09:00→20:22)
[2020-05-21] MEDS: SODIUM CHLORIDE FLUSH 10ML SYR IVF SCH ×2 (09:06→20:21)
[2020-05-21] MEDS: ESCITALOPRAM 10MG TABLET PO SCH (09:06)
[2020-05-21] MEDS: FLORASTOR 250 MG CAPSULE PO SCH ×2 (09:06→20:21)
[2020-05-21] MEDS: ENOXAPARIN 40 MG/0.4 ML SQ SCH (09:07)
[2020-05-21] MEDS: OXYcodone IR 5MG TABLET PO PRN ×2 (11:23→16:16)
[2020-05-21] MEDS ORDERED: POLYETHYLENE GLYCOL 17 GM PACKET NG SCH (19:30)
[2020-05-22] MEDS: OXYcodone 5 MG/5 ML ORAL.SOL UDC PO PRN ×5 (00:15→20:38)
[2020-05-22] MEDS: ALBUTEROL/IPRATROPIUM 2.5MG/0.5MG, 3 ML NPPB SCH ×5 (01:58→18:55)
[2020-05-22] MEDS: CEFEPIME 1 GM in DEXTROSE 5% 50 ML IV SCH ×3 (03:07→18:01)
[2020-05-22 03:53] LABS: MEAN CORPUSCULAR HEMOGLOBIN 26.9 pg (27.5-34.5); MEAN CORPUSCULAR HGB CONC 32.7 g/dL (33.2-36.2); MEAN PLATELET VOLUME 9.8 fL (7.4-10.4); PLATELET COUNT 359 x10^3/uL (130-400); RED BLOOD COUNT 3.57 x10^6/uL (4.38-5.82); RED CELL DISTRIBUTION WIDTH 16.3 % (9.4-14.8)
[2020-05-22 04:04] LABS: CHLORIDE 97 mmol/L (98-107)
[2020-05-22 04:19] LABS: ANION GAP 5 mmol/L (5-15); CALCIUM 8.8 mg/dL (8.5-10.1); CREATININE 0.51 mg/dL (0.7-1.3)
[2020-05-22 04:31] LABS: BAND#(MANUAL) 0.38 x10^3/uL; BANDS%(MANUAL) 3 % (0-7); BASOS#(MANUAL) 0.13 x10^3/uL (0-0.1); BASOS% (MANUAL) 1 % (0-1); EOS#(MANUAL) 0.13 x10^3/uL (0.0-0.4); EOS% (MANUAL) 1 % (1-7); LYMPH#(MANUAL) 2.03 x10^3/uL (1-3.4); LYMPHS% (MANUAL) 16 % (22-44); MD YES; MONOS#(MANUAL) 1.91 x10^3/uL (0.3-2.7); MONOS% (MANUAL) 15 % (2-9); MYELOCYTES# (MANUAL) 0.13 x10^3/uL (0-0); MYELOCYTES% (MANUAL) 1 % (0-0); REACTIVE LYMPHS # (MANUAL) 0.25 x10^3/uL (0-0); REACTIVE LYMPHS % (MANUAL) 2 % (0-0); SEG#(MANUAL) 7.75 x10^3/uL (1.8-6.8); SEGS% (MANUAL) 61 % (42-75)
[2020-05-22 04:32] LABS: <PLATELET ESTIMATE> ADEQUATE; ANISOCYTOSIS 1+; HYPOCHROMIA 1+; LARGE PLATELETS 1+; OVALOCYTES 1+; POLYCHROMASIA 1+
[2020-05-22] MEDS: GUAIFENESIN 100 MG/5 ML, 10ML UDC PO/NG SCH ×4 (05:00→20:38)
[2020-05-22] MEDS: SODIUM CHLORIDE FLUSH 10ML SYR IVF SCH ×2 (09:15→20:39)
[2020-05-22] MEDS: ESCITALOPRAM 10MG TABLET PO SCH (09:15)
[2020-05-22] MEDS: FLORASTOR 250 MG CAPSULE PO SCH ×2 (09:15→20:38)
[2020-05-22] MEDS: POLYETHYLENE GLYCOL 17 GM PACKET NG SCH (09:15)
[2020-05-22] MEDS: ENOXAPARIN 40 MG/0.4 ML SQ SCH (10:22)
[2020-05-22] MEDS: DOCUSATE 50 MG/5 ML, 10ML UDC PO PRN (20:38)
[2020-05-23] MEDS: OXYcodone 5 MG/5 ML ORAL.SOL UDC PO PRN ×5 (00:43→19:21)
[2020-05-23] MEDS: ALBUTEROL/IPRATROPIUM 2.5MG/0.5MG, 3 ML NPPB SCH ×4 (00:45→18:40)
[2020-05-23] MEDS: CEFEPIME 1 GM in DEXTROSE 5% 50 ML IV SCH ×3 (02:58→19:14)
[2020-05-23] MEDS: GUAIFENESIN 100 MG/5 ML, 10ML UDC PO/NG SCH ×4 (04:55→21:04)
[2020-05-23] MEDS ORDERED: MORPHINE SULFATE 4 MG/ML, 1ML ONE (06:05)
[2020-05-23] MEDS ORDERED: MORPHINE SULFATE 4 MG/ML, 1ML IVPush ONE (06:30)
[2020-05-23] MEDS: ESCITALOPRAM 10MG TABLET PO SCH (09:00)
[2020-05-23] MEDS: SODIUM CHLORIDE FLUSH 10ML SYR IVF SCH ×2 (09:00→21:03)
[2020-05-23] MEDS: POLYETHYLENE GLYCOL 17 GM PACKET NG SCH (09:00)
[2020-05-23] MEDS: FLORASTOR 250 MG CAPSULE PO SCH ×2 (09:00→21:03)
[2020-05-23] MEDS: DOCUSATE 50 MG/5 ML, 10ML UDC PO PRN (09:01)
[2020-05-23] MEDS: ENOXAPARIN 40 MG/0.4 ML SQ SCH (10:33)
[2020-05-23 12:00] VITALS: BP 122/80
[2020-05-23 12:49] VITALS: BP 131/84
[2020-05-23 13:00] VITALS: BP 128/82
[2020-05-23 14:00] VITALS: BP 134/82
[2020-05-23 15:00] VITALS: BP 122/84
[2020-05-23 20:00] VITALS: BP 125/89
[2020-05-24] MEDS: ALBUTEROL/IPRATROPIUM 2.5MG/0.5MG, 3 ML NPPB SCH ×2 (00:35→09:00)
[2020-05-24] MEDS: OXYcodone 5 MG/5 ML ORAL.SOL UDC PO PRN ×4 (01:51→20:20)
[2020-05-24 02:00] VITALS: BP 123/81
[2020-05-24] MEDS: CEFEPIME 1 GM in DEXTROSE 5% 50 ML IV SCH ×3 (02:59→20:05)
[2020-05-24] MEDS: GUAIFENESIN 100 MG/5 ML, 10ML UDC PO/NG SCH ×4 (05:09→20:36)
[2020-05-24 07:27] VITALS: BP 130/87
[2020-05-24] MEDS: POLYETHYLENE GLYCOL 17 GM PACKET NG SCH (07:28)
[2020-05-24] MEDS: FLORASTOR 250 MG CAPSULE PO SCH ×2 (09:07→22:53)
[2020-05-24] MEDS: ESCITALOPRAM 10MG TABLET PO SCH (09:07)
[2020-05-24] MEDS: SODIUM CHLORIDE FLUSH 10ML SYR IVF SCH ×2 (09:08→20:49)
[2020-05-24] MEDS: ENOXAPARIN 40 MG/0.4 ML SQ SCH (10:32)
[2020-05-24] MEDS: metroNIDAZOLE 500 MG TABLET PO SCH ×2 (12:27→20:05)
[2020-05-24 18:33] VITALS: BP 114/74
[2020-05-25 00:54] VITALS: BP 133/81
[2020-05-25] MEDS: OXYcodone 5 MG/5 ML ORAL.SOL UDC PO PRN ×2 (01:00→06:34)
[2020-05-25] MEDS: metroNIDAZOLE 500 MG TABLET PO SCH ×3 (03:00→18:33)
[2020-05-25] MEDS: CEFEPIME 1 GM in DEXTROSE 5% 50 ML IV SCH ×3 (03:17→18:32)
[2020-05-25] MEDS ORDERED: ALBUTEROL SULFATE 2.5 MG/3 ML ONE ×2 (04:14→16:44)
[2020-05-25] MEDS ORDERED: CEFEPIME 1 GM in DEXTROSE 5% 50 ML IV ONE (04:30)
[2020-05-25] MEDS: GUAIFENESIN 100 MG/5 ML, 10ML UDC PO/NG SCH ×4 (06:33→20:40)
[2020-05-25 07:20] VITALS: BP 135/82
[2020-05-25] MEDS: FLORASTOR 250 MG CAPSULE PO SCH ×2 (08:18→20:39)
[2020-05-25] MEDS: POLYETHYLENE GLYCOL 17 GM PACKET NG SCH (08:18)
[2020-05-25] MEDS: ESCITALOPRAM 10MG TABLET PO SCH (08:19)
[2020-05-25] MEDS: SODIUM CHLORIDE FLUSH 10ML SYR IVF SCH ×2 (08:27→20:40)
[2020-05-25 09:14] LABS: BASOPHILS % (AUTO) 1 % (0-1); EOSINOPHILS % (AUTO) 2 % (1-7); LYMPHOCYTES % (AUTO) 16 % (22-44); MEAN CORPUSCULAR HEMOGLOBIN 26.8 pg (27.5-34.5); MEAN CORPUSCULAR HGB CONC 32.7 g/dL (33.2-36.2); MEAN PLATELET VOLUME 10.2 fL (7.4-10.4); MONOCYTES % (AUTO) 10 % (2-9); NEUTROPHILS % (AUTO) 72 % (42-75); PLATELET COUNT 386 x10^3/uL (130-400); RED BLOOD COUNT 3.67 x10^6/uL (4.38-5.82)
[2020-05-25 09:20] LABS: MD NO
[2020-05-25 09:21] LABS: CALCIUM 8.8 mg/dL (8.5-10.1); CHLORIDE 103 mmol/L (98-107)
[2020-05-25 09:27] LABS: ALANINE AMINOTRANSFERASE 32 U/L (12-78); ALBUMIN 2.1 g/dL (3.4-5.0); ALKALINE PHOSPHATASE 125 U/L (45-117); ANION GAP 7 mmol/L (5-15); BILIRUBIN,TOTAL 0.4 mg/dL (0.2-1.0); CREATININE 0.52 mg/dL (0.7-1.3); TOTAL PROTEIN 7.6 g/dL (6.4-8.2)
[2020-05-25] MEDS: ENOXAPARIN 40 MG/0.4 ML SQ SCH (10:31)
[2020-05-25 15:52] VITALS: BP 127/83
[2020-05-25 20:25] VITALS: BP 132/95
[2020-05-25] MEDS: TEMAZEPAM 15 MG CAPSULE PO PRN (21:24)
[2020-05-26 02:06] VITALS: BP 144/98
[2020-05-26] MEDS: metroNIDAZOLE 500 MG TABLET PO SCH ×3 (03:00→18:07)
[2020-05-26] MEDS: CEFEPIME 1 GM in DEXTROSE 5% 50 ML IV SCH ×3 (05:12→18:08)
[2020-05-26] MEDS: GUAIFENESIN 100 MG/5 ML, 10ML UDC PO/NG SCH ×4 (06:00→20:23)
[2020-05-26 08:15] VITALS: BP 144/95
[2020-05-26] MEDS: POLYETHYLENE GLYCOL 17 GM PACKET NG SCH (09:00)
[2020-05-26] MEDS: FLORASTOR 250 MG CAPSULE PO SCH ×2 (10:55→20:23)
[2020-05-26] MEDS: ENOXAPARIN 40 MG/0.4 ML SQ SCH (10:55)
[2020-05-26] MEDS: ESCITALOPRAM 10MG TABLET PO SCH (10:55)
[2020-05-26] MEDS: SODIUM CHLORIDE FLUSH 10ML SYR IVF SCH ×2 (10:56→20:23)
[2020-05-26] MEDS: ACETAMINOPHEN 325 MG TABLET PO PRN (10:58)
[2020-05-26 13:49] VITALS: BP 154/92
[2020-05-26 19:30] LABS: CLOSTRIDIUM DIFFICILE ANTIGEN NEGATIVE; CLOSTRIDIUM DIFFICILE TOXIN NEGATIVE (Negative)
[2020-05-26 20:33] VITALS: BP 135/84
[2020-05-26] MEDS: LOPERAMIDE 1 MG/7.5 ML LIQUID NG PRN (22:03)
[2020-05-26] MEDS: TEMAZEPAM 15 MG CAPSULE PO PRN (22:04)
[2020-05-27 00:41] VITALS: BP 132/89
[2020-05-27] MEDS: metroNIDAZOLE 500 MG TABLET PO SCH ×3 (01:36→18:19)
[2020-05-27] MEDS: CEFEPIME 1 GM in DEXTROSE 5% 50 ML IV SCH ×3 (03:17→20:32)
[2020-05-27] MEDS: ALBUTEROL-IPRATROPIUM MDI INH INH PRN (03:21)
[2020-05-27 05:05] LABS: BASOPHILS % (AUTO) 1 % (0-1); EOSINOPHILS % (AUTO) 2 % (1-7); LYMPHOCYTES % (AUTO) 17 % (22-44); MEAN CORPUSCULAR HEMOGLOBIN 26.4 pg (27.5-34.5); MEAN CORPUSCULAR HGB CONC 31.9 g/dL (33.2-36.2); MEAN PLATELET VOLUME 9.9 fL (7.4-10.4); MONOCYTES % (AUTO) 10 % (2-9); NEUTROPHILS % (AUTO) 71 % (42-75); PLATELET COUNT 363 x10^3/uL (130-400); RED BLOOD COUNT 3.81 x10^6/uL (4.38-5.82); RED CELL DISTRIBUTION WIDTH 17.3 % (9.4-14.8)
[2020-05-27 05:08] LABS: MD NO
[2020-05-27 05:17] LABS: ANION GAP 6 mmol/L (5-15); CHLORIDE 104 mmol/L (98-107); CREATININE 0.54 mg/dL (0.7-1.3)
[2020-05-27] MEDS: GUAIFENESIN 100 MG/5 ML, 10ML UDC PO/NG SCH ×4 (05:56→23:09)
[2020-05-27 08:09] VITALS: BP 121/78
[2020-05-27] MEDS: FLORASTOR 250 MG CAPSULE PO SCH ×2 (08:10→20:32)
[2020-05-27] MEDS: ESCITALOPRAM 10MG TABLET PO SCH (08:10)
[2020-05-27] MEDS: SODIUM CHLORIDE FLUSH 10ML SYR IVF SCH ×2 (08:11→20:33)
[2020-05-27] MEDS: POLYETHYLENE GLYCOL 17 GM PACKET NG SCH (08:11)
[2020-05-27] MEDS: ENOXAPARIN 40 MG/0.4 ML SQ SCH (10:00)
--- NOTE | 2020-05-27 13:47 | NUR ---
Up in chair 2-3x/wk or as long as tolerated throughout the day Walk with nursing 2-3x/wk, short distances with rest breaks Upper body theraband HEP 2-3/day Standing ADLs in AM Addendum: 05/27/20 at 1349 by Carrie De Paz OT Amended: Links added.
[2020-05-27 15:55] VITALS: BP 132/88
[2020-05-27 19:12] VITALS: BP 128/91
[2020-05-27] MEDS: TEMAZEPAM 15 MG CAPSULE PO PRN (20:32)
[2020-05-27] MEDS ORDERED: ALBUTEROL/IPRATROPIUM 2.5MG/0.5MG, 3 ML ONE (23:08)
[2020-05-28 01:03] VITALS: BP 128/85
[2020-05-28] MEDS: metroNIDAZOLE 500 MG TABLET PO SCH ×3 (01:36→16:34)
[2020-05-28] MEDS: CEFEPIME 1 GM in DEXTROSE 5% 50 ML IV SCH ×3 (04:31→19:41)
[2020-05-28] MEDS: GUAIFENESIN 100 MG/5 ML, 10ML UDC PO/NG SCH ×4 (04:57→21:27)
[2020-05-28 06:16] VITALS: BP 139/93
[2020-05-28 06:21] LABS: ALANINE AMINOTRANSFERASE 48 U/L (12-78); ALBUMIN 2.4 g/dL (3.4-5.0); ANION GAP 9 mmol/L (5-15); CALCIUM 9.3 mg/dL (8.5-10.1); CHLORIDE 104 mmol/L (98-107)
[2020-05-28 06:23] LABS: ALKALINE PHOSPHATASE 115 U/L (45-117); BILIRUBIN,TOTAL 0.4 mg/dL (0.2-1.0); CREATININE 0.63 mg/dL (0.7-1.3); TOTAL PROTEIN 7.8 g/dL (6.4-8.2)
[2020-05-28] MEDS: POLYETHYLENE GLYCOL 17 GM PACKET NG SCH (07:58)
[2020-05-28] MEDS ORDERED: POLYETHYLENE GLYCOL 17 GM PACKET NG PRN (08:00)
[2020-05-28] MEDS ORDERED: ACETAMINOPHEN 325 MG TABLET PO PRN (08:00)
[2020-05-28] MEDS: ALBUTEROL-IPRATROPIUM MDI INH INH PRN (08:10)
[2020-05-28] MEDS: ESCITALOPRAM 10MG TABLET PO SCH (08:17)
[2020-05-28] MEDS: FLORASTOR 250 MG CAPSULE PO SCH ×2 (08:18→21:27)
[2020-05-28] MEDS: SODIUM CHLORIDE FLUSH 10ML SYR IVF SCH ×2 (08:27→21:27)
[2020-05-28] MEDS: LACTOBACILLUS CHEW TABLET PO SCH ×3 (08:27→21:27)
[2020-05-28] MEDS: ENOXAPARIN 40 MG/0.4 ML SQ SCH (10:00)
[2020-05-28 13:15] VITALS: BP 124/80
[2020-05-28] MEDS ORDERED: FERROUS SULFATE 325 MG TABLET PO SCH (16:00)
[2020-05-28] MEDS: FERROUS SULFATE 220 MG/5 ML ORAL SOL PO SCH (16:28)
[2020-05-28 17:34] VITALS: BP 125/86
[2020-05-28] MEDS: CARVEDILOL 3.125 MG TABLET PO SCH (17:38)
[2020-05-28 18:43] VITALS: BP 126/87
[2020-05-28] MEDS: TEMAZEPAM 15 MG CAPSULE PO PRN (21:28)
[2020-05-29] MEDS: metroNIDAZOLE 500 MG TABLET PO SCH ×3 (01:41→16:31)
[2020-05-29 01:47] VITALS: BP 125/83
[2020-05-29] MEDS: CEFEPIME 1 GM in DEXTROSE 5% 50 ML IV SCH ×3 (04:00→19:53)
[2020-05-29 05:06] LABS: BASOPHILS % (AUTO) 1 % (0-1); EOSINOPHILS % (AUTO) 3 % (1-7); LYMPHOCYTES % (AUTO) 17 % (22-44); MEAN CORPUSCULAR HEMOGLOBIN 27.2 pg (27.5-34.5); MEAN CORPUSCULAR HGB CONC 33.1 g/dL (33.2-36.2); MONOCYTES % (AUTO) 11 % (2-9); NEUTROPHILS % (AUTO) 69 % (42-75); PLATELET COUNT 350 x10^3/uL (130-400); RED BLOOD COUNT 4.07 x10^6/uL (4.38-5.82); RED CELL DISTRIBUTION WIDTH 17.7 % (9.4-14.8)
[2020-05-29 05:13] LABS: MD NO
[2020-05-29] MEDS: GUAIFENESIN 100 MG/5 ML, 10ML UDC PO/NG SCH ×4 (06:17→22:01)
[2020-05-29 06:20] VITALS: BP 130/87
[2020-05-29] MEDS: CARVEDILOL 3.125 MG TABLET PO SCH ×2 (06:20→18:06)
[2020-05-29] MEDS ORDERED: OXYcodone 5 MG/5 ML ORAL.SOL UDC PO PRN (07:30)
[2020-05-29] MEDS: FLORASTOR 250 MG CAPSULE PO SCH ×2 (08:24→22:01)
[2020-05-29] MEDS: LACTOBACILLUS CHEW TABLET PO SCH ×3 (08:25→22:01)
[2020-05-29] MEDS: ESCITALOPRAM 10MG TABLET PO SCH (08:25)
[2020-05-29] MEDS: SODIUM CHLORIDE FLUSH 10ML SYR IVF SCH ×2 (08:29→19:54)
[2020-05-29] MEDS: ALBUTEROL-IPRATROPIUM MDI INH INH PRN (09:22)
[2020-05-29] MEDS: ENOXAPARIN 40 MG/0.4 ML SQ SCH (10:59)
[2020-05-29 12:08] VITALS: BP 120/80
[2020-05-29 22:00] VITALS: BP 124/78
[2020-05-29] MEDS: TEMAZEPAM 15 MG CAPSULE PO PRN (22:02)
[2020-05-29] MEDS: MELATONIN 5 MG TABLET PO PRN (22:02)
[2020-05-30] MEDS: metroNIDAZOLE 500 MG TABLET PO SCH ×3 (01:00→17:00)
[2020-05-30 01:21] VITALS: BP 111/77
[2020-05-30] MEDS: CEFEPIME 1 GM in DEXTROSE 5% 50 ML IV SCH ×3 (03:16→17:54)
[2020-05-30 05:40] LABS: BASOPHILS % (AUTO) 1 % (0-1); EOSINOPHILS % (AUTO) 3 % (1-7); LYMPHOCYTES % (AUTO) 19 % (22-44); MEAN CORPUSCULAR HEMOGLOBIN 26.7 pg (27.5-34.5); MEAN CORPUSCULAR HGB CONC 32.7 g/dL (33.2-36.2); MEAN PLATELET VOLUME 10.1 fL (7.4-10.4); MONOCYTES % (AUTO) 12 % (2-9); NEUTROPHILS % (AUTO) 65 % (42-75); PLATELET COUNT 330 x10^3/uL (130-400); RED BLOOD COUNT 4.22 x10^6/uL (4.38-5.82); RED CELL DISTRIBUTION WIDTH 18.2 % (9.4-14.8)
[2020-05-30 05:42] LABS: MD NO
[2020-05-30] MEDS: GUAIFENESIN 100 MG/5 ML, 10ML UDC PO/NG SCH ×4 (06:00→21:16)
[2020-05-30 06:02] VITALS: BP 118/82
[2020-05-30] MEDS: CARVEDILOL 3.125 MG TABLET PO SCH ×2 (06:02→17:55)
[2020-05-30] MEDS: SODIUM CHLORIDE FLUSH 10ML SYR IVF SCH ×2 (09:00→21:17)
[2020-05-30] MEDS: ESCITALOPRAM 10MG TABLET PO SCH (09:28)
[2020-05-30] MEDS: FLORASTOR 250 MG CAPSULE PO SCH ×2 (09:28→21:16)
[2020-05-30] MEDS: LACTOBACILLUS CHEW TABLET PO SCH ×3 (09:28→21:16)
[2020-05-30] MEDS: ENOXAPARIN 40 MG/0.4 ML SQ SCH (09:29)
[2020-05-30 12:10] VITALS: BP 122/84
[2020-05-30] MEDS: FERROUS SULFATE 220 MG/5 ML ORAL SOL PO SCH (16:04)
[2020-05-30 17:55] VITALS: BP 117/85
[2020-05-30 19:28] VITALS: BP 113/78
[2020-05-30] MEDS: TEMAZEPAM 15 MG CAPSULE PO PRN (21:16)
[2020-05-30] MEDS: MELATONIN 5 MG TABLET PO PRN (21:17)
[2020-05-31 00:56] VITALS: BP 128/86
[2020-05-31] MEDS: metroNIDAZOLE 500 MG TABLET PO SCH ×2 (00:59→09:00)
[2020-05-31] MEDS: CEFEPIME 1 GM in DEXTROSE 5% 50 ML IV SCH (03:39)
[2020-05-31 05:22] VITALS: BP 124/87
[2020-05-31] MEDS: CARVEDILOL 3.125 MG TABLET PO SCH ×2 (05:26→17:17)
[2020-05-31] MEDS: GUAIFENESIN 100 MG/5 ML, 10ML UDC PO/NG SCH ×4 (05:26→20:52)
[2020-05-31 06:19] VITALS: BP 123/83
[2020-05-31] MEDS: SODIUM CHLORIDE FLUSH 10ML SYR IVF SCH ×2 (09:03→20:52)
[2020-05-31] MEDS: ESCITALOPRAM 10MG TABLET PO SCH (09:04)
[2020-05-31] MEDS: FLORASTOR 250 MG CAPSULE PO SCH ×2 (09:04→20:52)
[2020-05-31] MEDS: LACTOBACILLUS CHEW TABLET PO SCH ×3 (09:04→20:52)
[2020-05-31] MEDS: ENOXAPARIN 40 MG/0.4 ML SQ SCH (09:06)
[2020-05-31] MEDS: ERTAPENEM 1 GM in SODIUM CHLORIDE 0.9% 50 ML IV SCH (12:02)
[2020-05-31 12:15] VITALS: BP 127/81
[2020-05-31 18:45] VITALS: BP 120/80
[2020-05-31] MEDS: TEMAZEPAM 15 MG CAPSULE PO PRN (21:03)
[2020-05-31] MEDS: MELATONIN 5 MG TABLET PO PRN (21:03)
[2020-06-01 00:07] VITALS: BP 122/79
[2020-06-01] MEDS: CARVEDILOL 3.125 MG TABLET PO SCH (06:12)
[2020-06-01] MEDS: GUAIFENESIN 100 MG/5 ML, 10ML UDC PO/NG SCH ×2 (06:12→11:27)
[2020-06-01 07:26] VITALS: BP 131/87
[2020-06-01] MEDS: FLORASTOR 250 MG CAPSULE PO SCH (08:57)
[2020-06-01] MEDS: LACTOBACILLUS CHEW TABLET PO SCH (08:57)
[2020-06-01] MEDS: ESCITALOPRAM 10MG TABLET PO SCH (08:57)
[2020-06-01] MEDS: SODIUM CHLORIDE FLUSH 10ML SYR IVF SCH (08:58)
[2020-06-01] MEDS: ENOXAPARIN 40 MG/0.4 ML SQ SCH (08:59)
[2020-06-01] MEDS: ERTAPENEM 1 GM in SODIUM CHLORIDE 0.9% 50 ML IV SCH (11:27)
[2020-06-01] MEDS ORDERED: ACID1TAB7 PO (12:27)
[2020-06-01] MEDS ORDERED: Albuterol-Ipratropium Mdi INH (12:27)
[2020-06-01] MEDS ORDERED: CARV3.1212 PO (12:27)
[2020-06-01] MEDS ORDERED: ACET325T26 PO (12:27)
[2020-06-01] MEDS ORDERED: ESCI10TA97 PO (12:27)
[2020-06-01] MEDS ORDERED: FERR324T5 PO (12:27)
[2020-06-01 12:56] VITALS: BP 123/80
== END 2020-06-01 16:30 | disposition home or self-care (01) | DRG 4 ==
LOC: ED 05:46 → EDIP 07:12 → 4WST 09:09 → ICU 17:46 → EDIP 05-11 19:02 → CCU 05-19 18:22 → 5SO 05-24 13:14 → CCU 05-24 13:15 → 5SO 05-24 13:51 → 4WST 05-27 18:40 → DCLOUNGE 06-01 16:13
PROVIDERS: ADMIT Internal Medicine; ATTEND Internal Medicine
PROC: 0J950ZZ Drainage of Left Neck Subcutaneous Tissue and Fascia, Open Approach (ICD-10-PCS; 2020-04-15)
PROC: 0J940ZZ Drainage of Right Neck Subcutaneous Tissue and Fascia, Open Approach (ICD-10-PCS; 2020-04-15)
PROC: 5A1955Z Respiratory Ventilation, Greater than 96 Consecutive Hours (ICD-10-PCS; 2020-04-15)
PROC: 0BH17EZ Insertion of Endotracheal Airway into Trachea, Via Natural or Artificial Opening (ICD-10-PCS; 2020-04-15)
PROC: 0CDWXZ0 Extraction of Upper Tooth, Single, External Approach (ICD-10-PCS; 2020-04-16)
PROC: 0W930ZZ Drainage of Oral Cavity and Throat, Open Approach (ICD-10-PCS; 2020-04-16)
PROC: 0W993ZZ Drainage of Right Pleural Cavity, Percutaneous Approach (ICD-10-PCS; 2020-04-18)
PROC: BB4BZZZ Ultrasonography of Pleura (ICD-10-PCS; 2020-04-18)
PROC: 0W993ZZ Drainage of Right Pleural Cavity, Percutaneous Approach (ICD-10-PCS; 2020-04-22)
PROC: 0BCK0ZZ Extirpation of Matter from Right Lung, Open Approach (ICD-10-PCS; 2020-04-24)
PROC: 0W9930Z Drainage of Right Pleural Cavity with Drainage Device, Percutaneous Approach (ICD-10-PCS; 2020-04-24)
PROC: 02HV33Z Insertion of Infusion Device into Superior Vena Cava, Percutaneous Approach (ICD-10-PCS; 2020-04-24)
PROC: B548ZZA Ultrasonography of Superior Vena Cava, Guidance (ICD-10-PCS; 2020-04-24)
PROC: 0W9B3ZZ Drainage of Left Pleural Cavity, Percutaneous Approach (ICD-10-PCS; 2020-04-25)
PROC: BB4BZZZ Ultrasonography of Pleura (ICD-10-PCS; 2020-04-25)
PROC: 0CBH0ZZ Excision of Left Submaxillary Gland, Open Approach (ICD-10-PCS; 2020-05-02)
PROC: 0JB50ZZ Excision of Left Neck Subcutaneous Tissue and Fascia, Open Approach (ICD-10-PCS; 2020-05-02)
PROC: 0J910ZZ Drainage of Face Subcutaneous Tissue and Fascia, Open Approach (ICD-10-PCS; 2020-05-02)
PROC: 0B110F4 Bypass Trachea to Cutaneous with Tracheostomy Device, Open Approach (ICD-10-PCS; 2020-05-02)
PROC: 30233N1 Transfusion of Nonautologous Red Blood Cells into Peripheral Vein, Percutaneous Approach (ICD-10-PCS; 2020-05-03)
PROC: 0B9F7ZX Drainage of Right Lower Lung Lobe, Via Natural or Artificial Opening, Diagnostic (ICD-10-PCS; 2020-05-04)
PROC: 0B9D7ZX Drainage of Right Middle Lung Lobe, Via Natural or Artificial Opening, Diagnostic (ICD-10-PCS; 2020-05-04)
PROC: 0B9K00Z Drainage of Right Lung with Drainage Device, Open Approach (ICD-10-PCS; principal; 2020-05-17 15:00)
PROC: 0DH64UZ Insertion of Feeding Device into Stomach, Percutaneous Endoscopic Approach (ICD-10-PCS; 2020-05-17 15:00)
PROC: 02HV33Z Insertion of Infusion Device into Superior Vena Cava, Percutaneous Approach (ICD-10-PCS; 2020-06-01)
PROC: B548ZZA Ultrasonography of Superior Vena Cava, Guidance (ICD-10-PCS; 2020-06-01)
PROC: B518ZZA Fluoroscopy of Superior Vena Cava, Guidance (ICD-10-PCS; 2020-06-01)
DX: A40.9 Streptococcal sepsis, unspecified (principal); D50.9 Iron deficiency anemia, unspecified; D62 Acute posthemorrhagic anemia; D69.59 Other secondary thrombocytopenia; D72.810 Lymphocytopenia; E66.9 Obesity, unspecified; E87.0 Hyperosmolality and hypernatremia; E87.1 Hypo-osmolality and hyponatremia; E87.2 Acidosis; E87.6 Hypokalemia; E88.09 Other disorders of plasma-protein metabolism, not elsewhere classified; F15.10 Other stimulant abuse, uncomplicated; U07.1 COVID-19; F32.9 Major depressive disorder, single episode, unspecified; F41.9 Anxiety disorder, unspecified; I21.A1 Myocardial infarction type 2; I50.21 Acute systolic (congestive) heart failure; J12.82 Pneumonia due to coronavirus disease 2019; J38.4 Edema of larynx; J43.9 Emphysema, unspecified; J85.1 Abscess of lung with pneumonia; J93.82 Other air leak; J96.01 Acute respiratory failure with hypoxia; J96.02 Acute respiratory failure with hypercapnia; L02.11 Cutaneous abscess of neck; N17.0 Acute kidney failure with tubular necrosis; N18.9 Chronic kidney disease, unspecified; R65.21 Severe sepsis with septic shock; T38.0X5A Adverse effect of glucocorticoids and synthetic analogues, initial encounter; T79.7XXA Traumatic subcutaneous emphysema, initial encounter; Y84.8 Other medical procedures as the cause of abnormal reaction of the patient, or of later complication, without mention of misadventure at the time of the procedure; R00.0 Tachycardia, unspecified; R22.1 Localized swelling, mass and lump, neck; R53.81 Other malaise; R73.9 Hyperglycemia, unspecified; R74.01 Elevation of levels of liver transaminase levels; K04.7 Periapical abscess without sinus; K11.20 Sialoadenitis, unspecified; Z68.32 Body mass index [BMI] 32.0-32.9, adult
CPT/HCPCS: J3490 ×6; 31502; 31624; 32555; 36415; 36573; 36600; 70490; 70491; 71045; 71250; 71260; 71275; 74018; 74230; 76705; 76770; 80048; 80053; 80069; 80074; 80202; 81001; 81003; 82330; 82436; 82550; 82728; 82803; 82947; 82962; 83036; 83540; 83550; 83605; 83615; 83735; 83880; 83986; 84100; 84132; 84133; 84145; 84157; 84295; 84300; 84443; 84478; 84484; 84550; 85014; 85018; 85025; 85049; 85379; 85384; 85520; 85610; 85651; 85730; 86140; 86850; 86900; 86923; 87015; 87040; 87070; 87075; 87076; 87077; 87081; 87086; 87102; 87116; 87176; 87181; 87186; 87205; 87206; 87324; 87635; 88112; 88305; 89051; 93005; 94002; 94003; 94150; 94640; 96365; 96375; 96376; 99291; B4087; C1729; C8929; G0378; J0171; J0295; J0456; J0692; J0696; J1100; J1170; J1335; J1644; J1650; J1885; J1940; J2175; J2250; J2405; J2543; J2704; J3010; J3370; J3480; J7030; Q9957; Q9967; C1751; J0330; J1815; J2060; J2270; J2370; J7040; J7050; J7120; P9016; U0003